=== PATIENT | male | born 1955 | race African-American/Black ===

== ENCOUNTER 2018-10-28 18:10 | Emergency (ER) | payer OTHER ==
[~2018-10-28] VITALS: Ht 182.9 cm; Wt 75.3 kg
[2018-10-28] MEDS ORDERED: LIDOCAINE WITH 8.4% SOD BICARB 3 ML DISP.SYRIN. INJ ONE (19:30)
[2018-10-28 19:39] VITALS: BP 163/98
--- NOTE | 2018-10-28 19:45 | PHYS DOC ---
Adult General Chief Complaint Chief Complaint: LACERATION/AVULSION HPI HPI Patient is a 63 year old male presents to ED complaining of left wrist laceration 2 hours ago. Patient states that a sample grinder bumped a piece of rock and the sample grinder came back and hit his left wrist. Describes the pain as sharp. R ates the pain as 3 out of 10. States that the cut is superficial. States bleeding controlled at the site. Denies weakness, paresthesias, bony injury, decreased range of motion, fever. Review of Systems Review of Systems Constitutional: Denies fever or chills [] Eyes: Denies change in visual acuity, redness, or eye pain [] HENT: Denies nasal congestion or sore throat [] Respiratory: Denies cough or shortness of breath [] Cardiovascular: No additional information not addressed in HPI [] GI: Denies abdominal pain, nausea, vomiting, bloody stools or diarrhea [] : Denies dysuria or hematuria [] Musculoskeletal: Complains of left wrist laceration. Denies back pain or joint pain [] Integument: Denies rash or skin lesions [] Neurologic: Denies headache, focal weakness or sensory changes [] All other systems were reviewed and found to be within normal limits, except as documented in this note. Current Medications Current Medications Current Medications Medications (Trade) Dose Ordered Sig/[facility] Start Time Stop Time Status Last Admin Dose Admin Lidocaine/Sodium Bicarbonate (Buffered Lidocaine 1%) 6 ml 1X ONCE 10/28/18 19:30 10/28/18 19:40 DC 10/28/18 19:30 6 ML Allergies Allergies Allergies Coded Allergies Type Severity Reaction Last Updated Verified No Known Drug Allergies 10/28/18 No Physical Exam Physical Exam Constitutional: Well developed, well nourished, no acute distress, non-toxic appearance. [] HENT: Normocephalic, atraumatic Skin: Warm, dry, no erythema, no rash. [] Back: No tenderness, no CVA tenderness. [] Extremities: 4 cm laceration to left wrist. Bleeding controlled. No bony tenderness, no cyanosis, no clubbing, ROM intact, no edema. NV intact. No overlying skin changes. 2+ cap refill. [] Neurologic: Alert and oriented X 3, normal motor function, normal sensory function, no focal deficits noted. [] Psychologic: Affect normal, judgement normal, mood normal. [] Current Patient Data Vital Signs Vital Signs Date Time Temp Pulse Resp B/P (MAP) Pulse Ox O2 Delivery O2 Flow Rate FiO2 10/28/18 19:39 98.6 106 20 163/98 (119) 96 Room Air 98.6 EKG EKG [] Radiology/Procedures Radiology/Procedures [] Course & Med Decision Making Course & Med Decision Making Pertinent Labs and Imaging studies reviewed. (See chart for details) []Laceration repaired. No complications. Patient tolerated well. Tetanus up-to-date. Discussed symptomatic treatment and wound care. Discussed follow-up for reevaluation 3 days. Provided contact information/education. Discussed reasons to return to the ED. Patient understands and agrees with plan. Dragon Disclaimer Dragon Disclaimer This electronic medical record was generated, in whole or in part, using a voice recognition dictation system. Departure Departure Impression: Primary Impression: Wrist laceration Disposition: HOME, SELF-CARE Condition: IMPROVED Referrals: NO PCP (PCP) FÁTIMA COLEMAN MD Patient Instructions: Sutured Wound Care Laceration/Wound Repair Laceration/Wound Repair : Wound Location: upper extremity Wound's Depth, Shape: superficial Wound Length (cm): 4 Wound Explored: clean Irrigated w/ Saline (ccs): 500 Betadine Prep?: Yes Anesthesia: 1% Lidocaine Wound Repaired With: sutures Suture Size/Type: 3:0, nylon Number of Sutures: 13 Progress Patient tolerated well. No complications. JERRY OSULLIVAN October 28, 2018 19:45
== END 2018-10-28 20:11 | disposition home or self-care (01) ==
LOC: ER 18:10
DX: S61.512A Laceration without foreign body of left wrist, initial encounter (principal); W22.8XXA Striking against or struck by other objects, initial encounter; Y93.89 Activity, other specified; Y92.89 Other specified places as the place of occurrence of the external cause; Y99.8 Other external cause status
CPT/HCPCS: 12002; 99283

== ENCOUNTER 2018-11-08 10:14 | Emergency (ER) | payer OTHER ==
[~2018-11-08] VITALS: Ht 182.9 cm; Wt 80.7 kg
[2018-11-08 10:33] VITALS: BP 135/90
[2018-11-08] MEDS ORDERED: ALBUTEROL SULFATE 2.5 MG/3 ML NEBU. NEB ONE (11:15)
[2018-11-08] MEDS ORDERED: ALBU2.5V8 INH (11:24)
[2018-11-08] MEDS ORDERED: DOXY100T9 PO (11:24)
--- NOTE | 2018-11-08 11:25 | PHYS DOC ---
Past Medical History Past Medical History: No Pertinent History (BHUMI INTERIANO APRN) Past Surgical History: No Surgical History (BHUMI INTERIANO APRN) Alcohol Use: Heavy Drug Use: None (BHUMI INTERIANO APRN) Adult General Chief Complaint Chief Complaint: SUTURE/STAPLE REMOVAL [facility] HPI Patient is a 63 year old male who presents with a laceration to his left wrist after it was cut with a glass grinder. The patient presents for suture removals. Upon speaking with the patient I noticed that there is a considerable amount of wheezing. The patient states that he's been having some respiratory issues. The [facility]. He has not had good ollow-up care. (BHUMI INTERIANO APRN) Review of Systems Review of Systems Constitutional: Denies fever or chills [] Eyes: Denies change in visual acuity, redness, or eye pain [] HENT: Denies nasal congestion or sore throat [] Respiratory: See history of present illness Cardiovascular: No additional information not addressed in HPI [] GI: Denies abdominal pain, nausea, vomiting, bloody stools or diarrhea [] : Denies dysuria or hematuria [] Musculoskeletal: Denies back pain or joint pain [] Integument: See history of present illness Neurologic: Denies headache, focal weakness or sensory changes [] Endocrine: Denies polyuria or polydipsia [] All other systems were reviewed and found to be within normal limits, except as documented in this note. (BHUMI INTERIANO APRN) Current Medications Current Medications Current Medications Medications (Trade) Dose Ordered Sig/[facility] Start Time Stop Time Status Last Admin Dose Admin Albuterol Sulfate (Ventolin Neb Soln) 2.5 mg 1X ONCE 11/08/18 11:15 11/08/18 11:16 DC 11/08/18 11:05 2.5 MG (MARIA C URIBE MD) Allergies Allergies Allergies Coded Allergies Type Severity Reaction Last Updated Verified No Known Drug Allergies 10/28/18 No (MARIA C URIBE MD) Physical Exam Physical Exam Constitutional: Well developed, well nourished, no acute distress, non-toxic appearance. [] Cardiovascular:Heart rate regular rhythm, no murmur [] Lungs & Thorax: Bilateral breath sounds show wheezing and rhonchi with a harsh cough noted Abdomen: Bowel sounds normal, soft, no tenderness, no masses, no pulsatile masses. [] Skin: 4 cm healing laceration with some gaping noted at the distal repair Back: No tenderness, no CVA tenderness. [] Extremities: No tenderness, no cyanosis, no clubbing, ROM intact, no edema. [] Neurologic: Alert and oriented X 3, normal motor function, normal sensory function, no focal deficits noted. [] Psychologic: Affect normal, judgement normal, mood normal. [] (BHUMI INTERIANO APRN) Current Patient Data Vital Signs Vital Signs Date Time Temp Pulse Resp B/P (MAP) Pulse Ox O2 Delivery O2 Flow Rate FiO2 11/08/18 11:07 93 Room Air 11/08/18 10:33 98.7 115 20 135/90 (105) 98.7 (MARIA C URIBE MD) EKG EKG [] (BHUMI INTERIANO APRN) Radiology/Procedures Radiology/Procedures [] (BHUMI INTERIANO APRN) Course & Med Decision Making Course & Med Decision Making Pertinent Labs and Imaging studies reviewed. (See chart for details) []Sutures were removed and the patient's wound was reinforced with Mastisol and Steri-Strips. He has been placed on doxycycline after he received an albuterol treatment in the emergency department. He states that the albuterol did make him feel better. He has been given a prescription for an albuterol inhaler for at- home use. (BHUMI INTERIANO APRN) Course & Med Decision Making Staff Physician Addendum: I was working in the ER during the course of this patient's visit. I was available for consultation as needed, but I was not directly involved in the care of this patient. (MARIA C URIBE MD) Dragon Disclaimer Dragon Disclaimer This electronic medical record was generated, in whole or in part, using a voice recognition dictation system. (BHUMI INTERIANO APRN) Departure Departure Impression: Primary Impression: Visit for suture removal Additional Impressions: Cough Wheezing Disposition: HOME, SELF-CARE Condition: STABLE Referrals: NO PCP (PCP) Patient Instructions: Cough, Adult, Suture Removal-Brief Additional Instructions: Take the medication as directed. Follow-up with your primary care provider for recheck if you're cough is not improving. Return to emergency department if worsening. The Steri-Strips will come up on their own. Do not pull on them. Keep the wound clean and dry. Scripts Albuterol Sulfate (PROAIR HFA INHALER) 8.5 Gm Hfa.aer.ad 1 PUFF INH PRN Q6HRS PRN for SHORTNESS OF BREATH, #1 INHALER 0 Refills Prov: BHUMI INTERIANO APRN 11/08/18 Doxycycline Hyclate (DOXYCYCLINE HYCLATE) 100 Mg Tablet. 1 TAB PO BID for infection, #20 TAB Prov: BHUMI INTERIANO APRN 11/08/18 Problem Qualifiers BHUMI INTERIANO APRN November 08, 2018 11:25 MARIA C URIBE MD November 09, 2018 18:45
== END 2018-11-08 11:35 | disposition home or self-care (01) ==
LOC: ER 10:14
DX: S61.512D Laceration without foreign body of left wrist, subsequent encounter (principal); R05 Cough; R06.2 Wheezing; F10.20 Alcohol dependence, uncomplicated; Y90.9 Presence of alcohol in blood, level not specified; W29.0XXD Contact with powered kitchen appliance, subsequent encounter
CPT/HCPCS: 94640; 99283; J7613

== ENCOUNTER 2018-11-19 22:23 | Inpatient (IN) | payer OTHER, SELFPAY ==
[~2018-11-19] VITALS: Ht 182.9 cm; Wt 74.0 kg
[~2018-11-19 22:23] MED LIST: ALBU2.5V8 INH; DOXY100T9 PO
--- NOTE | 2018-11-19 23:30 | PHYS DOC ---
Past Medical History Past Medical History: No Pertinent History (JERRY ZALDIVAR APRN) Past Surgical History: No Surgical History Additional Past Surgical Histo: Pins in L elbow (JERRY ZALDIVAR APRN) Alcohol Use: Heavy Drug Use: None (JERRY ZALDIVAR APRN) Adult General Chief Complaint Chief Complaint: LOWER EXTREMITY [facility] HPI Patient is a 63 year old [male] who presents with lower leg swelling bilaterally for the past 4-5 days. Patient reports he started some swelling increasing in his legs on October 30, after he had had some brief shortness of breath. Reports he had some cough and congestion, and started taking some black seed oil at that time. Reports he has noticed it to help his breathing and help his cough, but has also noticed some swelling start to his legs which is progressively worsened since that time. Reports yesterday he noticed the swelling wasn't to his scrotum, and reports today described as very full with fluid. Also reports he notices some fluid on his bilateral flanks, which she does not normally have, reports he does not normally carry any weight around his hips, but today he does. Reports he has been eating and drinking normally, remains active, denies any increase in dyspnea on activity, reports he continues to work as he normally does. Reports some discomfort only due to swelling. (JERRY ZALDIVAR APRN) Review of Systems Review of Systems Constitutional: Denies fever or chills [] Eyes: Denies change in visual acuity, redness, or eye pain [] HENT: Denies nasal congestion or sore throat [] Respiratory: Denies cough or shortness of breath [] Cardiovascular: No additional information not addressed in HPI [] GI: Denies abdominal pain, nausea, vomiting, bloody stools or diarrhea [] : Denies dysuria or hematuria, reports scrotal swelling started yesterday. [] Musculoskeletal: Denies back pain or joint pain, reports swelling in bilateral legs. [] Integument: Denies rash or skin lesions [] Neurologic: Denies headache, focal weakness or sensory changes [] Endocrine: Denies polyuria or polydipsia [] All other systems were reviewed and found to be within normal limits, except as documented in this note. (JERRY ZALDIVAR APRN) Allergies Allergies Allergies Coded Allergies Type Severity Reaction Last Updated Verified No Known Drug Allergies 10/28/18 No (FÁTIMA DAUGHERTY DO) Physical Exam Physical Exam Constitutional: Well developed, well nourished, no acute distress, non-toxic appearance. [] HENT: Normocephalic, atraumatic, bilateral external ears normal, oropharynx moist, no oral exudates, nose normal. [] Eyes: PERRLA, EOMI, conjunctiva normal, no discharge. [] Neck: Normal range of motion, no tenderness, supple, no stridor. [] Cardiovascular:Heart rate regular rhythm, no murmur [] Lungs & Thorax: Bilateral breath with coarse rales, bilateral, left worse than right.[] Abdomen: Bowel sounds normal, soft, no tenderness, no masses, no pulsatile masses. Soft, fluid noted to bilateral flanks. Abdomen mildly distended, no tenderness [] Skin: Warm, dry, no erythema, no rash. [] Back: No tenderness, no CVA tenderness. [] Extremities: No tenderness, no cyanosis, no clubbing, ROM intact, 4+ edema to bilateral lower legs, extending to hips, and into scrotum. Scrotum notably swollen. [] Neurologic: Alert and oriented X 3, normal motor function, normal sensory function, no focal deficits noted. [] Psychologic: Affect normal, judgement normal, mood normal. [] (JERRY ZALDIVAR APRN) Current Patient Data Vital Signs Vital Signs Date Time Temp Pulse Resp B/P (MAP) Pulse Ox O2 Delivery O2 Flow Rate FiO2 11/19/18 23:43 125 20 125/89 (101) 99 Nasal Cannula 2.0 11/19/18 22:39 98.2 98.2 (FÁTIMA DAUGHERTY DO) Lab Values Laboratory Tests Test 11/19/18 22:40 11/19/18 22:56 Urine Collection Type Unknown Urine Color Malgorzata Urine Clarity Clear Urine pH 5.5 Urine Specific [place] >=1.030 Urine Protein 30 mg/dL (NEG-TRACE) Urine Glucose (UA) Negative mg/dL (NEG) Urine Ketones (Stick) Negative mg/dL (NEG) Urine Blood Negative (NEG) Urine Nitrite Negative (NEG) Urine Bilirubin Small (NEG) Urine Urobilinogen Dipstick 1.0 mg/dL (0.2 mg/dL) Urine Leukocyte Esterase Negative (NEG) Urine RBC 0 /HPF (0-2) Urine WBC 5-10 /HPF (0-4) Urine Squamous Epithelial Cells Occ /LPF Urine Bacteria 0 /HPF (0-FEW) Urine Hyaline Casts Moderate /HPF Urine Mucus Marked /LPF White Blood Count 6.6 x10^3/uL (4.0-11.0) Red Blood Count 3.83 x10^6/uL (4.30-5.70) L Hemoglobin 12.7 g/dL (13.0-17.5) L Hematocrit 38.8 % (39.0-53.0) L Mean Corpuscular Volume 101 fL (79-100) H Mean Corpuscular Hemoglobin 33 pg (25-35) Mean Corpuscular Hemoglobin Concent 33 g/dL (31-37) Red Cell Distribution Width 14.1 % (11.5-14.5) Platelet Count 206 x10^3/uL (140-400) Neutrophils (%) (Auto) 63 % (31-73) Lymphocytes (%) (Auto) 24 % (24-48) Monocytes (%) (Auto) 11 % (0-9) H Eosinophils (%) (Auto) 1 % (0-3) Basophils (%) (Auto) 1 % (0-3) Neutrophils # (Auto) 4.2 x10^3uL (1.8-7.7) Lymphocytes # (Auto) 1.6 x10^3/uL (1.0-4.8) Monocytes # (Auto) 0.7 x10^3/uL (0.0-1.1) Eosinophils # (Auto) 0.1 x10^3/uL (0.0-0.7) Basophils # (Auto) 0.0 x10^3/uL (0.0-0.2) Sodium Level 142 mmol/L (136-145) Potassium Level 4.2 mmol/L (3.5-5.1) Chloride Level 105 mmol/L (98-107) Carbon Dioxide Level 30 mmol/L (21-32) Anion Gap 7 (6-14) Blood Urea Nitrogen 15 mg/dL (8-26) Creatinine 0.9 mg/dL (0.7-1.3) Estimated GFR (Cockcroft-Gault) 102.5 BUN/Creatinine Ratio 17 (6-20) Glucose Level 135 mg/dL (70-99) H Calcium Level 8.6 mg/dL (8.5-10.1) Total Bilirubin 0.5 mg/dL (0.2-1.0) Aspartate Amino Transferase (AST) 42 U/L (15-37) H Alanine Aminotransferase (ALT) 44 U/L (16-63) Alkaline Phosphatase 85 U/L (46-116) Creatine Kinase 294 U/L (39-308) Creatine Kinase MB (Mass) 7.2 ng/mL (0.0-3.6) H Creatine Kinase MB Relative Index 2.4 % (0-4) Troponin I Quantitative 0.063 ng/mL (0.000-0.055) XB-Drs-K-Type Natriuretic Peptide 7105 pg/mL (0-124) H Total Protein 5.9 g/dL (6.4-8.2) L Albumin 2.9 g/dL (3.4-5.0) L Albumin/Globulin Ratio 1.0 (1.0-1.7) Ethyl Alcohol Level < 10 mg/dL (0-10) Laboratory Tests 11/19/18 22:56 Laboratory Tests 11/19/18 22:56 Microbiology 11/19/18 Urine Culture - Final, Complete 11/19/18 Urine Culture Result 1 (MALCOM) - Final, Complete (FÁTIMA DAUGHERTY DO) Lab Values Laboratory Tests Test 11/19/18 22:40 11/19/18 22:56 Urine Collection Type Unknown Urine Color Malgorzata Urine Clarity Clear Urine pH 5.5 Urine Specific [place] >=1.030 Urine Protein 30 mg/dL (NEG-TRACE) Urine Glucose (UA) Negative mg/dL (NEG) Urine Ketones (Stick) Negative mg/dL (NEG) Urine Blood Negative (NEG) Urine Nitrite Negative (NEG) Urine Bilirubin Small (NEG) Urine Urobilinogen Dipstick 1.0 mg/dL (0.2 mg/dL) Urine Leukocyte Esterase Negative (NEG) Urine RBC 0 /HPF (0-2) Urine WBC 5-10 /HPF (0-4) Urine Squamous Epithelial Cells Occ /LPF Urine Bacteria 0 /HPF (0-FEW) Urine Hyaline Casts Moderate /HPF Urine Mucus Marked /LPF White Blood Count 6.6 x10^3/uL (4.0-11.0) Red Blood Count 3.83 x10^6/uL (4.30-5.70) L Hemoglobin 12.7 g/dL (13.0-17.5) L Hematocrit 38.8 % (39.0-53.0) L Mean Corpuscular Volume 101 fL (79-100) H Mean Corpuscular Hemoglobin 33 pg (25-35) Mean Corpuscular Hemoglobin Concent 33 g/dL (31-37) Red Cell Distribution Width 14.1 % (11.5-14.5) Platelet Count 206 x10^3/uL (140-400) Neutrophils (%) (Auto) 63 % (31-73) Lymphocytes (%) (Auto) 24 % (24-48) Monocytes (%) (Auto) 11 % (0-9) H Eosinophils (%) (Auto) 1 % (0-3) Basophils (%) (Auto) 1 % (0-3) Neutrophils # (Auto) 4.2 x10^3uL (1.8-7.7) Lymphocytes # (Auto) 1.6 x10^3/uL (1.0-4.8) Monocytes # (Auto) 0.7 x10^3/uL (0.0-1.1) Eosinophils # (Auto) 0.1 x10^3/uL (0.0-0.7) Basophils # (Auto) 0.0 x10^3/uL (0.0-0.2) Sodium Level 142 mmol/L (136-145) Potassium Level 4.2 mmol/L (3.5-5.1) Chloride Level 105 mmol/L (98-107) Carbon Dioxide Level 30 mmol/L (21-32) Anion Gap 7 (6-14) Blood Urea Nitrogen 15 mg/dL (8-26) Creatinine 0.9 mg/dL (0.7-1.3) Estimated GFR (Cockcroft-Gault) 102.5 BUN/Creatinine Ratio 17 (6-20) Glucose Level 135 mg/dL (70-99) H Calcium Level 8.6 mg/dL (8.5-10.1) Total Bilirubin 0.5 mg/dL (0.2-1.0) Aspartate Amino Transferase (AST) 42 U/L (15-37) H Alanine Aminotransferase (ALT) 44 U/L (16-63) Alkaline Phosphatase 85 U/L (46-116) Creatine Kinase 294 U/L (39-308) Creatine Kinase MB (Mass) 7.2 ng/mL (0.0-3.6) H Creatine Kinase MB Relative Index 2.4 % (0-4) Troponin I Quantitative 0.063 ng/mL (0.000-0.055) SM-Ipk-J-Type Natriuretic Peptide 7105 pg/mL (0-124) H Total Protein 5.9 g/dL (6.4-8.2) L Albumin 2.9 g/dL (3.4-5.0) L Albumin/Globulin Ratio 1.0 (1.0-1.7) Ethyl Alcohol Level < 10 mg/dL (0-10) Laboratory Tests 11/19/18 22:56 Laboratory Tests 11/19/18 22:56 (JERRY ZALDIVAR APRN) EKG EKG [no stemi, Normal sinus rhythm. per Dr Daugherty] (JERRY ZALDIVAR APRN) Radiology/Procedures Radiology/Procedures No acute cardiopulmonary changes. Cardiomegaly noted. Per Dr Daugherty @ 0045[] (JERRY ZALDIVAR APRN) Course & Med Decision Making Course & Med Decision Making Pertinent Labs and Imaging studies reviewed. (See chart for details) [Discussed findings with patient, noting elevated troponin, elevated BNP. Will administer diuretics and ASA here. Discussed admission, patient agreeable to admission. Discussed with Dr Daugherty, agrees to patient admission.] (JERRY ZALDIVAR APRN) Dragon Disclaimer Dragon Disclaimer This electronic medical record was generated, in whole or in part, using a voice recognition dictation system. (JERRY ZALDIVAR APRN) Departure Departure Impression: Primary Impression: Acute heart failure Additional Impressions: Elevated troponin Edema Disposition: ADMITTED INPATIENT Condition: STABLE Referrals: NO PCP (PCP) Attending Signature Attending Signature I have reviewed the PA/BARREL LOADER's note and plan of care. I was available for consultation as needed during the patient's visit in the emergency department. I agree with the clinical impression, plan, and disposition. (FÁTIMA DAUGHERTY DO) Problem Qualifiers Primary Impression: Acute heart failure Heart failure type: unspecified Qualified Codes: I50.9 - Heart failure, unspecified Additional Impressions: Edema Edema type: generalized Qualified Codes: R60.1 - Generalized edema JERRY ZALDIVAR APRN November 19, 2018 23:30 FÁTIMA DAUGHERTY DO Nov 20, 2018 04:08
[2018-11-19 23:35] LABS: BASO % 1 % (0-3); EOS # 0.1 x10^3/uL (0.0-0.7); EOS % 1 % (0-3); HEMATOCRIT 38.8 % (39.0-53.0); HEMOGLOBIN 12.7 g/dL (13.0-17.5); LYMPH # 1.6 x10^3/uL (1.0-4.8); LYMPH % 24 % (24-48); MEAN CORPUSCULAR HEMOGLOBIN 33 pg (25-35); MEAN CORPUSCULAR HGB CONC 33 g/dL (31-37); MEAN CORPUSCULAR VOLUME 101 fL (79-100); MONO # 0.7 x10^3/uL (0.0-1.1); MONO % 11 % (0-9); NEUT # 4.2 x10^3uL (1.8-7.7); NEUT % 63 % (31-73); PLATELET COUNT 206 x10^3/uL (140-400); RED BLOOD COUNT 3.83 x10^6/uL (4.30-5.70); RED CELL DISTRIBUTION WIDTH 14.1 % (11.5-14.5); WHITE BLOOD COUNT 6.6 x10^3/uL (4.0-11.0)
[2018-11-19 23:39] LABS: BILIRUBIN,URINE SMALL (NEG); CLARITY,URINE CLEAR; COLOR,URINE AMBER; NITRITE,URINE NEGATIVE (NEG); PH,URINE 5.5; PROTEIN,URINE 30 mg/dL (NEG-TRACE)
[2018-11-19 23:45] LABS: BACTERIA,URINE 0 /HPF (0-FEW); HYALINE CASTS, URINE MODERATE /HPF; RBC,URINE 0 /HPF (0-2); SQUAMOUS EPITHELIAL CELL,UR OCC /LPF
[2018-11-19 23:47] LABS: CALCIUM 8.6 mg/dL (8.5-10.1); CREATININE 0.9 mg/dL (0.7-1.3); GFR 102.5; POTASSIUM 4.2 mmol/L (3.5-5.1)
[2018-11-19 23:53] LABS: ALBUMIN 2.9 g/dL (3.4-5.0); TOTAL BILIRUBIN 0.5 mg/dL (0.2-1.0); TOTAL PROTEIN 5.9 g/dL (6.4-8.2)
[2018-11-20] MEDS ORDERED: ONDANSETRON PF 4 MG/2 ML VIAL. IV PRN (00:45)
[2018-11-20] MEDS ORDERED: FUROSEMIDE 40 MG/4 ML VIAL. IVP ONE (00:45)
[2018-11-20] MEDS ORDERED: ASPIRIN CHEWABLE 81 MG TABLET. PO ONE (00:45)
[2018-11-20 01:30] VITALS: BP 137/88
[2018-11-20 07:00] VITALS: BP 117/76
--- NOTE | 2018-11-20 08:06 | RAD ---
EXAM: CHEST 1 VIEW History: Shortness of breath COMPARISON: None available. TECHNIQUE: Single portable radiograph of the chest FINDINGS: Low lung volumes and technique accentuates heart size and pulmonary vascularity. Minimal prominent appearing bilateral interstitial lung markings. The costophrenic sulci are clear and well demarcated. IMPRESSION: Minimal congestive changes. Electronically signed by: Jaden Peraza MD (11/20/2018 8:03 AM) [facility]
--- NOTE | 2018-11-20 10:41 | EKG ---
[facility] [address] [place] [address] Test Date: 2018-11-19 Test Time: 22:48:17 Pat Name: KIRILL FOFANA Department: Room: Gender: M Mink Rancher: : 1955 Requested By: JERRY ZALDIVAR Order Number: [id number] Reading MD: Measurements Intervals [place] Rate: 94 P: 69 [place]: 142 QRS: -34 QRSD: 80 T: 49 QT: 374 QTc: 473 Interpretive Statements SINUS RHYTHM LEFT ATRIAL ABNORMALITY ABNORMAL LEFT AXIS DEVIATION S1,S2,S3 PATTERN LEFT ANTERIOR FASCICULAR BLOCK QRS(T) CONTOUR ABNORMALITY CONSISTENT WITH ANTEROSEPTAL INFARCT AGE UNDETERMINED ABNORMAL ECG No previous ECG available for comparison
[2018-11-20 11:00] VITALS: BP 110/76
[2018-11-20] MEDS ORDERED: ALBUTEROL SULFATE 2.5 MG/3 ML NEBU. INH PRN (14:15)
--- NOTE | 2018-11-20 14:15 | PDOC1 ---
History and Physical Date of Admission Date of Admission 11/20/2018 Identification/Chief Complaint Chief Complaint I am swollen Problems: (1) Acute heart failure (2) Elevated troponin Source Source: Chart review, Patient History of Present Illness History of Present Illness Patient is a 63-year-old gentleman with no significant past medical history except for reactive airway disease. He comes today with a history of more or less 4 days prior to his admission noticing increase fluid retention over his lower extremities. The patient denies paroxysmal nocturnal dyspnea and orthopnea has been reported. The patient got concerned since the edema started reaching his scrotal area reason why he decided to come to the emergency department for evaluation. The patient was recently seen in our ER for a lacerations consequence of her related injury. Notes a long after he also felt ill with a upper respiratory tract infection and felt one of congested which led him to have decreased appetite and he started eating a lot of Garcia soups only. Ever since that time the patient has noted the retention of fluid his lower extremities are quite painful as a consequence but there is no evidence of erythema no cellulitic changes either. Lab work has been discussed with patient and initial impression of a congestive heart failure, reassurances been provided regarding the mildly elevated cardiac enzyme that was reported upon admission from the ER. The patient is not exhibiting chest pain no palpitations no neurological deficits no chest discomfort no abdominal pain no nausea vomiting or diarrhea has been reported. The patient is being admitted for treatment of the acute exacerbation of volume overload. Past Medical History Pulmonary: Asthma Past Surgical History Past Surgical History: No pertinent history Family History Family History: No Significant Social History Smoke: No ALCOHOL: none Drugs: None Current Medications Current Medications Current Medications Medications (Trade) Dose Ordered Sig/Maria Del Rosario Start Time Stop Time Status Last Admin Dose Admin Aspirin (Children'S Aspirin) 324 mg 1X ONCE 11/20/18 00:45 11/20/18 00:46 DC 11/20/18 00:47 324 MG Furosemide (Lasix) 40 mg 1X ONCE 11/20/18 00:45 11/20/18 00:46 DC 11/20/18 00:47 40 MG Ondansetron HCl (Zofran) 4 mg PRN Q8HRS PRN 11/20/18 00:45 11/21/18 00:44 11/20/18 00:47 4 MG Allergies Allergies Allergies Coded Allergies Type Severity Reaction Last Updated Verified No Known Drug Allergies 10/28/18 No ROS Review of System CONSTITUTIONAL: No fever or chills EYES: No recent changes SKIN: No rash or itching CARDIOVASCULAR: No chest pain, syncope, palpitations, or edema RESPIRATORY: No SOB or cough GASTROINTESTINAL: No nausea, vomiting or abdominal pain NEUROLOGICAL: No headaches or weakness ENDOCRINE: No cold or heat intolerance GENITOURINARY: No urgency or frequency of urination MUSCULOSKELETAL: No back pain or joint pain LYMPHATICS: No enlarged lymph nodes PSYCHIATRIC: No anxiety or depression Physical Exam Physical Exam GEN.: No apparent distress. Alert and oriented. HEENT: Head is normocephalic, atraumatic NECK: Supple. LUNGS: Clear to auscultation. HEART: RRR, S1, S2 present. Peripheral pulses intact ABDOMEN: Soft, nontender. Positive bowel sounds. EXTREMITIES: Without any cyanosis. 3+ edema NEUROLOGIC: Normal speech, normal tone PSYCHIATRIC: Normal affect, normal mood. SKIN: No ulcerations Vitals Vitals Vital Signs Date Time Temp Pulse Resp B/P (MAP) Pulse Ox O2 Delivery O2 Flow Rate FiO2 11/20/18 11:00 98.3 89 18 110/76 (87) 98 Nasal Cannula 2.0 98.3 Labs Labs Laboratory Tests Test 11/19/18 22:40 11/19/18 22:56 11/20/18 06:05 Urine Collection Type Unknown Urine Color Malgorzata Urine Clarity Clear Urine pH 5.5 Urine Specific Bry[place] >=1.030 Urine Protein 30 mg/dL (NEG-TRACE) Urine Glucose (UA) Negative mg/dL (NEG) Urine Ketones (Stick) Negative mg/dL (NEG) Urine Blood Negative (NEG) Urine Nitrite Negative (NEG) Urine Bilirubin Small (NEG) Urine Urobilinogen Dipstick 1.0 mg/dL (0.2 mg/dL) Urine Leukocyte Esterase Negative (NEG) Urine RBC 0 /HPF (0-2) Urine WBC 5-10 /HPF (0-4) Urine Squamous Epithelial Cells Occ /LPF Urine Bacteria 0 /HPF (0-FEW) Urine Hyaline Casts Moderate /HPF Urine Mucus Marked /LPF White Blood Count 6.6 x10^3/uL (4.0-11.0) Red Blood Count 3.83 x10^6/uL (4.30-5.70) Hemoglobin 12.7 g/dL (13.0-17.5) Hematocrit 38.8 % (39.0-53.0) Mean Corpuscular Volume 101 fL (79-100) Mean Corpuscular Hemoglobin 33 pg (25-35) Mean Corpuscular Hemoglobin Concent 33 g/dL (31-37) Red Cell Distribution Width 14.1 % (11.5-14.5) Platelet Count 206 x10^3/uL (140-400) Neutrophils (%) (Auto) 63 % (31-73) Lymphocytes (%) (Auto) 24 % (24-48) Monocytes (%) (Auto) 11 % (0-9) Eosinophils (%) (Auto) 1 % (0-3) Basophils (%) (Auto) 1 % (0-3) Neutrophils # (Auto) 4.2 x10^3uL (1.8-7.7) Lymphocytes # (Auto) 1.6 x10^3/uL (1.0-4.8) Monocytes # (Auto) 0.7 x10^3/uL (0.0-1.1) Eosinophils # (Auto) 0.1 x10^3/uL (0.0-0.7) Basophils # (Auto) 0.0 x10^3/uL (0.0-0.2) Sodium Level 142 mmol/L (136-145) Potassium Level 4.2 mmol/L (3.5-5.1) Chloride Level 105 mmol/L (98-107) Carbon Dioxide Level 30 mmol/L (21-32) Anion Gap 7 (6-14) Blood Urea Nitrogen 15 mg/dL (8-26) Creatinine 0.9 mg/dL (0.7-1.3) Estimated GFR (Cockcroft-Gault) 102.5 BUN/Creatinine Ratio 17 (6-20) Glucose Level 135 mg/dL (70-99) Calcium Level 8.6 mg/dL (8.5-10.1) Total Bilirubin 0.5 mg/dL (0.2-1.0) Aspartate Amino Transf (AST/SGOT) 42 U/L (15-37) Alanine Aminotransferase (ALT/SGPT) 44 U/L (16-63) Alkaline Phosphatase 85 U/L (46-116) Creatine Kinase 294 U/L (39-308) Creatine Kinase MB (Mass) 7.2 ng/mL (0.0-3.6) Creatine Kinase MB Relative Index 2.4 % (0-4) Troponin I Quantitative 0.063 ng/mL (0.000-0.055) 0.052 ng/mL (0.000-0.055) BX-Zba-Q-Type Natriuretic Peptide 7105 pg/mL (0-124) Total Protein 5.9 g/dL (6.4-8.2) Albumin 2.9 g/dL (3.4-5.0) Albumin/Globulin Ratio 1.0 (1.0-1.7) Ethyl Alcohol Level < 10 mg/dL (0-10) Laboratory Tests Test 11/19/18 22:40 11/19/18 22:56 11/20/18 06:05 Urine Collection Type Unknown Urine Color Malgorzata Urine Clarity Clear Urine pH 5.5 Urine Specific Bryson >=1.030 Urine Protein 30 mg/dL (NEG-TRACE) Urine Glucose (UA) Negative mg/dL (NEG) Urine Ketones (Stick) Negative mg/dL (NEG) Urine Blood Negative (NEG) Urine Nitrite Negative (NEG) Urine Bilirubin Small (NEG) Urine Urobilinogen Dipstick 1.0 mg/dL (0.2 mg/dL) Urine Leukocyte Esterase Negative (NEG) Urine RBC 0 /HPF (0-2) Urine WBC 5-10 /HPF (0-4) Urine Squamous Epithelial Cells Occ /LPF Urine Bacteria 0 /HPF (0-FEW) Urine Hyaline Casts Moderate /HPF Urine Mucus Marked /LPF White Blood Count 6.6 x10^3/uL (4.0-11.0) Red Blood Count 3.83 x10^6/uL (4.30-5.70) Hemoglobin 12.7 g/dL (13.0-17.5) Hematocrit 38.8 % (39.0-53.0) Mean Corpuscular Volume 101 fL (79-100) Mean Corpuscular Hemoglobin 33 pg (25-35) Mean Corpuscular Hemoglobin Concent 33 g/dL (31-37) Red Cell Distribution Width 14.1 % (11.5-14.5) Platelet Count 206 x10^3/uL (140-400) Neutrophils (%) (Auto) 63 % (31-73) Lymphocytes (%) (Auto) 24 % (24-48) Monocytes (%) (Auto) 11 % (0-9) Eosinophils (%) (Auto) 1 % (0-3) Basophils (%) (Auto) 1 % (0-3) Neutrophils # (Auto) 4.2 x10^3uL (1.8-7.7) Lymphocytes # (Auto) 1.6 x10^3/uL (1.0-4.8) Monocytes # (Auto) 0.7 x10^3/uL (0.0-1.1) Eosinophils # (Auto) 0.1 x10^3/uL (0.0-0.7) Basophils # (Auto) 0.0 x10^3/uL (0.0-0.2) Sodium Level 142 mmol/L (136-145) Potassium Level 4.2 mmol/L (3.5-5.1) Chloride Level 105 mmol/L (98-107) Carbon Dioxide Level 30 mmol/L (21-32) Anion Gap 7 (6-14) Blood Urea Nitrogen 15 mg/dL (8-26) Creatinine 0.9 mg/dL (0.7-1.3) Estimated GFR (Cockcroft-Gault) 102.5 BUN/Creatinine Ratio 17 (6-20) Glucose Level 135 mg/dL (70-99) Calcium Level 8.6 mg/dL (8.5-10.1) Total Bilirubin 0.5 mg/dL (0.2-1.0) Aspartate Amino Transf (AST/SGOT) 42 U/L (15-37) Alanine Aminotransferase (ALT/SGPT) 44 U/L (16-63) Alkaline Phosphatase 85 U/L (46-116) Creatine Kinase 294 U/L (39-308) Creatine Kinase MB (Mass) 7.2 ng/mL (0.0-3.6) Creatine Kinase MB Relative Index 2.4 % (0-4) Troponin I Quantitative 0.063 ng/mL (0.000-0.055) 0.052 ng/mL (0.000-0.055) GO-Tjr-Y-Type Natriuretic Peptide 7105 pg/mL (0-124) Total Protein 5.9 g/dL (6.4-8.2) Albumin 2.9 g/dL (3.4-5.0) Albumin/Globulin Ratio 1.0 (1.0-1.7) Ethyl Alcohol Level < 10 mg/dL (0-10) VTE Prophylaxis Ordered VTE Prophylaxis Devices: Yes VTE Pharmacological Prophylaxi: No Assessment/Plan Assessment/Plan Congestive heart failure most likely systolic dysfunction with acute exacerbation secondary to dietary transgression Hyperglycemia Mild elevation of troponin resolved Microcytic anemia Plan: Check echocardiogram We'll start Bumex drip Consult cardiology Resume home medications once available for review We'll check hemoglobin A1c in the a.m. and lipid panel in the a.m. for risk stratification DVT prophylaxis with SCD and teds Problem Qualifiers (1) Acute heart failure: Heart failure type: unspecified Qualified Codes: I50.9 - Heart failure, unspecified JERRELL BOWMAN MD Nov 20, 2018 14:15
--- NOTE | 2018-11-20 14:42 | PDOC2 ---
CONSULT Date of Consult Date of Consult DATE: 11/20/18 TIME: 14:38 Reason for Consult Reason for Consult: Heart failure Referring Physician Referring Physician: Dr. Arzola Identification/Chief Complaint Chief Complaint Edema and shortness of breath Source Source: Chart review, Patient History of Present Illness Reason for Visit: The patient is a 63-year-old black male who reports 5-7 days of increasing lower extremity edema and 2-3 days of increasing shortness of breath and congestion. The patient reports a history of probable asthma but no history of coronary artery disease, congestive heart failure or arrhythmias. He has remained quite active up until the last several weeks. His initial EKG shows a sinus rhythm with no acute ischemic changes. Troponin is within minimally elevated at 0.063 and 0.052. However his BNP is significantly elevated at 7105. He has been treated with diuretics overnight and is feeling better today. Past Medical History Pulmonary: Asthma Past Surgical History Past Surgical History: No pertinent history Family History Family History: No Significant Social History No ALCOHOL: none Drugs: None Current Medications Current Medications Current Medications Aspirin (Children'S Aspirin) 324 mg 1X ONCE PO Last administered on 11/20/18at 00:47; Start 11/20/18 at 00:45; Stop 11/20/18 at 00:46; Status DC Furosemide (Lasix) 40 mg 1X ONCE IVP Last administered on 11/20/18at 00:47; Start 11/20/18 at 00:45; Stop 11/20/18 at 00:46; Status DC Ondansetron HCl (Zofran) 4 mg PRN Q8HRS PRN IV NAUSEA/VOMITING Last administered on 11/20/18at 00:47; Start 11/20/18 at 00:45; Stop 11/21/18 at 00:44 Bumetanide 10 mg/ Dextrose 100 ml @ 10 mls/hr Q10H IV ; Start 11/20/18 at 14:30 Albuterol Sulfate (Ventolin Neb Soln) 8.5 mg PRN Q6HRS PRN INH SHORTNESS OF BREATH; Start 11/20/18 at 14:15 Active Scripts Active Proair Hfa Inhaler (Albuterol Sulfate) 8.5 Gm Hfa.aer.ad 1 Puff INH PRN Q6HRS PRN Doxycycline Hyclate 100 Mg Tablet. 1 Tab PO BID Allergies Allergies: Coded Allergies: No Known Drug Allergies (Unverified , 10/28/18) ROS General: YES: Fatigue Respiratory: YES: Shortness of breath, SOB with excertion Physical Exam General: mild distress HEENT: Atraumatic Lungs: Other (decreased breath sounds bilaterally) Heart: Regular rate Abdomen: Normal bowel sounds Vitals VITALS Vital Signs Date Time Temp Pulse Resp B/P (MAP) Pulse Ox O2 Delivery O2 Flow Rate FiO2 11/20/18 11:00 98.3 89 18 110/76 (87) 98 Nasal Cannula 2.0 98.3 Labs Labs Laboratory Tests Test 11/19/18 22:40 11/19/18 22:56 11/20/18 06:05 Urine Collection Type Unknown Urine Color Malgorzata Urine Clarity Clear Urine pH 5.5 Urine Specific [place] >=1.030 Urine Protein 30 mg/dL (NEG-TRACE) Urine Glucose (UA) Negative mg/dL (NEG) Urine Ketones (Stick) Negative mg/dL (NEG) Urine Blood Negative (NEG) Urine Nitrite Negative (NEG) Urine Bilirubin Small (NEG) Urine Urobilinogen Dipstick 1.0 mg/dL (0.2 mg/dL) Urine Leukocyte Esterase Negative (NEG) Urine RBC 0 /HPF (0-2) Urine WBC 5-10 /HPF (0-4) Urine Squamous Epithelial Cells Occ /LPF Urine Bacteria 0 /HPF (0-FEW) Urine Hyaline Casts Moderate /HPF Urine Mucus Marked /LPF White Blood Count 6.6 x10^3/uL (4.0-11.0) Red Blood Count 3.83 x10^6/uL (4.30-5.70) Hemoglobin 12.7 g/dL (13.0-17.5) Hematocrit 38.8 % (39.0-53.0) Mean Corpuscular Volume 101 fL (79-100) Mean Corpuscular Hemoglobin 33 pg (25-35) Mean Corpuscular Hemoglobin Concent 33 g/dL (31-37) Red Cell Distribution Width 14.1 % (11.5-14.5) Platelet Count 206 x10^3/uL (140-400) Neutrophils (%) (Auto) 63 % (31-73) Lymphocytes (%) (Auto) 24 % (24-48) Monocytes (%) (Auto) 11 % (0-9) Eosinophils (%) (Auto) 1 % (0-3) Basophils (%) (Auto) 1 % (0-3) Neutrophils # (Auto) 4.2 x10^3uL (1.8-7.7) Lymphocytes # (Auto) 1.6 x10^3/uL (1.0-4.8) Monocytes # (Auto) 0.7 x10^3/uL (0.0-1.1) Eosinophils # (Auto) 0.1 x10^3/uL (0.0-0.7) Basophils # (Auto) 0.0 x10^3/uL (0.0-0.2) Sodium Level 142 mmol/L (136-145) Potassium Level 4.2 mmol/L (3.5-5.1) Chloride Level 105 mmol/L (98-107) Carbon Dioxide Level 30 mmol/L (21-32) Anion Gap 7 (6-14) Blood Urea Nitrogen 15 mg/dL (8-26) Creatinine 0.9 mg/dL (0.7-1.3) Estimated GFR (Cockcroft-Gault) 102.5 BUN/Creatinine Ratio 17 (6-20) Glucose Level 135 mg/dL (70-99) Calcium Level 8.6 mg/dL (8.5-10.1) Total Bilirubin 0.5 mg/dL (0.2-1.0) Aspartate Amino Transf (AST/SGOT) 42 U/L (15-37) Alanine Aminotransferase (ALT/SGPT) 44 U/L (16-63) Alkaline Phosphatase 85 U/L (46-116) Creatine Kinase 294 U/L (39-308) Creatine Kinase MB (Mass) 7.2 ng/mL (0.0-3.6) Creatine Kinase MB Relative Index 2.4 % (0-4) Troponin I Quantitative 0.063 ng/mL (0.000-0.055) 0.052 ng/mL (0.000-0.055) AJ-Bow-V-Type Natriuretic Peptide 7105 pg/mL (0-124) Total Protein 5.9 g/dL (6.4-8.2) Albumin 2.9 g/dL (3.4-5.0) Albumin/Globulin Ratio 1.0 (1.0-1.7) Ethyl Alcohol Level < 10 mg/dL (0-10) Laboratory Tests Test 11/19/18 22:40 11/19/18 22:56 11/20/18 06:05 Urine Collection Type Unknown Urine Color Malgorzata Urine Clarity Clear Urine pH 5.5 Urine Specific [place] >=1.030 Urine Protein 30 mg/dL (NEG-TRACE) Urine Glucose (UA) Negative mg/dL (NEG) Urine Ketones (Stick) Negative mg/dL (NEG) Urine Blood Negative (NEG) Urine Nitrite Negative (NEG) Urine Bilirubin Small (NEG) Urine Urobilinogen Dipstick 1.0 mg/dL (0.2 mg/dL) Urine Leukocyte Esterase Negative (NEG) Urine RBC 0 /HPF (0-2) Urine WBC 5-10 /HPF (0-4) Urine Squamous Epithelial Cells Occ /LPF Urine Bacteria 0 /HPF (0-FEW) Urine Hyaline Casts Moderate /HPF Urine Mucus Marked /LPF White Blood Count 6.6 x10^3/uL (4.0-11.0) Red Blood Count 3.83 x10^6/uL (4.30-5.70) Hemoglobin 12.7 g/dL (13.0-17.5) Hematocrit 38.8 % (39.0-53.0) Mean Corpuscular Volume 101 fL (79-100) Mean Corpuscular Hemoglobin 33 pg (25-35) Mean Corpuscular Hemoglobin Concent 33 g/dL (31-37) Red Cell Distribution Width 14.1 % (11.5-14.5) Platelet Count 206 x10^3/uL (140-400) Neutrophils (%) (Auto) 63 % (31-73) Lymphocytes (%) (Auto) 24 % (24-48) Monocytes (%) (Auto) 11 % (0-9) Eosinophils (%) (Auto) 1 % (0-3) Basophils (%) (Auto) 1 % (0-3) Neutrophils # (Auto) 4.2 x10^3uL (1.8-7.7) Lymphocytes # (Auto) 1.6 x10^3/uL (1.0-4.8) Monocytes # (Auto) 0.7 x10^3/uL (0.0-1.1) Eosinophils # (Auto) 0.1 x10^3/uL (0.0-0.7) Basophils # (Auto) 0.0 x10^3/uL (0.0-0.2) Sodium Level 142 mmol/L (136-145) Potassium Level 4.2 mmol/L (3.5-5.1) Chloride Level 105 mmol/L (98-107) Carbon Dioxide Level 30 mmol/L (21-32) Anion Gap 7 (6-14) Blood Urea Nitrogen 15 mg/dL (8-26) Creatinine 0.9 mg/dL (0.7-1.3) Estimated GFR (Cockcroft-Gault) 102.5 BUN/Creatinine Ratio 17 (6-20) Glucose Level 135 mg/dL (70-99) Calcium Level 8.6 mg/dL (8.5-10.1) Total Bilirubin 0.5 mg/dL (0.2-1.0) Aspartate Amino Transf (AST/SGOT) 42 U/L (15-37) Alanine Aminotransferase (ALT/SGPT) 44 U/L (16-63) Alkaline Phosphatase 85 U/L (46-116) Creatine Kinase 294 U/L (39-308) Creatine Kinase MB (Mass) 7.2 ng/mL (0.0-3.6) Creatine Kinase MB Relative Index 2.4 % (0-4) Troponin I Quantitative 0.063 ng/mL (0.000-0.055) 0.052 ng/mL (0.000-0.055) BT-Rvy-X-Type Natriuretic Peptide 7105 pg/mL (0-124) Total Protein 5.9 g/dL (6.4-8.2) Albumin 2.9 g/dL (3.4-5.0) Albumin/Globulin Ratio 1.0 (1.0-1.7) Ethyl Alcohol Level < 10 mg/dL (0-10) Assessment/Plan Assessment/Plan 1. History, lab and physical exam is consistent with acute heart failure. As noted above patient denies any episodes of chest pain or any history of cardiovascular disease. Agree with diuresis with monitoring of the patient's lab. We'll check an echocardiogram for LV function. This was discussed with the patient. 2. History of asthma. No wheezing on examination today. 3. Unknown cholesterol level. We'll check a lipid panel for further evaluation. Thank you for allowing us to participate in the care of your patient. GLEN OLIVARES MD Nov 20, 2018 14:42
[2018-11-20] MEDS: DEXTROSE 5% IV SCH ×2 (14:55→22:33)
[2018-11-20] MEDS: BUMETANIDE IV SCH ×2 (14:55→22:33)
[2018-11-20 15:00] VITALS: BP 111/66
[2018-11-20 19:35] VITALS: BP 111/67
[2018-11-20 23:54] VITALS: BP 108/68
[2018-11-21 03:30] VITALS: BP 124/88
[2018-11-21 05:19] LABS: BASO % 1 % (0-3); EOS # 0.1 x10^3/uL (0.0-0.7); EOS % 1 % (0-3); HEMATOCRIT 41.2 % (39.0-53.0); HEMOGLOBIN 13.7 g/dL (13.0-17.5); LYMPH # 1.3 x10^3/uL (1.0-4.8); LYMPH % 22 % (24-48); MEAN CORPUSCULAR HEMOGLOBIN 34 pg (25-35); MEAN CORPUSCULAR HGB CONC 33 g/dL (31-37); MEAN CORPUSCULAR VOLUME 102 fL (79-100); MONO # 0.5 x10^3/uL (0.0-1.1); MONO % 10 % (0-9); NEUT # 3.8 x10^3uL (1.8-7.7); NEUT % 66 % (31-73); PLATELET COUNT 205 x10^3/uL (140-400); RED BLOOD COUNT 4.06 x10^6/uL (4.30-5.70); RED CELL DISTRIBUTION WIDTH 14.4 % (11.5-14.5); WHITE BLOOD COUNT 5.7 x10^3/uL (4.0-11.0)
[2018-11-21 05:47] LABS: CALCIUM 8.9 mg/dL (8.5-10.1); CREATININE 1.2 mg/dL (0.7-1.3); GFR 73.5; POTASSIUM 4.1 mmol/L (3.5-5.1)
[2018-11-21 06:35] LABS: CHOLESTEROL/HDL RATIO 2.4
[2018-11-21 07:00] VITALS: BP 131/71
[2018-11-21 11:00] VITALS: BP 117/72
[2018-11-21] MEDS: BUMETANIDE IV SCH ×2 (11:29→20:08)
[2018-11-21] MEDS: DEXTROSE 5% IV SCH ×2 (11:29→20:08)
--- NOTE | 2018-11-21 13:06 | PDOC ---
PROGRESS NOTES Subjective Subjective Patient seen and examined He looks and feels better today. Objective Objective Vital Signs Date Time Temp Pulse Resp B/P (MAP) Pulse Ox O2 Delivery O2 Flow Rate FiO2 11/21/18 11:00 97.5 81 18 117/72 (87) 95 Room Air 97.5 11/21/18 08:00 2.0 Intake and Output 11/21/18 07:00 Intake Total 1915 ml Output Total 3750 ml Balance -1835 ml Intake Oral 1800 ml IV Total 115 ml Output Urine Total 3750 ml # Voids 1 # Bowel Movements 2 Physical Exam Abdomen: Normal bowel sounds Heart: Regular rate General: mild distress Lungs: Other (decreased breath sounds but improved.) Assessment Assessment 1. Acute heart failure. Improved with diuresis. Continue present medications. Echocardiogram today. 2. History of asthma. Again no wheezing on examination. 3. Cholesterol panel is within normal limits with an LDL of 72, HDL of 57 and triglycerides of 138. Comment Review of Relevant I have reviewed the following items ida (where applicable) has been applied. Labs Laboratory Tests Test 11/19/18 22:40 11/19/18 22:56 11/20/18 06:05 11/21/18 04:45 Urine Collection Type Unknown Urine Color [place] Urine Clarity Clear Urine pH 5.5 Urine Specific [place] >=1.030 Urine Protein 30 mg/dL (NEG-TRACE) Urine Glucose (UA) Negative mg/dL (NEG) Urine Ketones (Stick) Negative mg/dL (NEG) Urine Blood Negative (NEG) Urine Nitrite Negative (NEG) Urine Bilirubin Small (NEG) Urine Urobilinogen Dipstick 1.0 mg/dL (0.2 mg/dL) Urine Leukocyte Esterase Negative (NEG) Urine RBC 0 /HPF (0-2) Urine WBC 5-10 /HPF (0-4) Urine Squamous Epithelial Cells Occ /LPF Urine Bacteria 0 /HPF (0-FEW) Urine Hyaline Casts Moderate /HPF Urine Mucus Marked /LPF White Blood Count 6.6 x10^3/uL (4.0-11.0) 5.7 x10^3/uL (4.0-11.0) Red Blood Count 3.83 x10^6/uL (4.30-5.70) 4.06 x10^6/uL (4.30-5.70) Hemoglobin 12.7 g/dL (13.0-17.5) 13.7 g/dL (13.0-17.5) Hematocrit 38.8 % (39.0-53.0) 41.2 % (39.0-53.0) Mean Corpuscular Volume 101 fL (79-100) 102 fL (79-100) Mean Corpuscular Hemoglobin 33 pg (25-35) 34 pg (25-35) Mean Corpuscular Hemoglobin Concent 33 g/dL (31-37) 33 g/dL (31-37) Red Cell Distribution Width 14.1 % (11.5-14.5) 14.4 % (11.5-14.5) Platelet Count 206 x10^3/uL (140-400) 205 x10^3/uL (140-400) Neutrophils (%) (Auto) 63 % (31-73) 66 % (31-73) Lymphocytes (%) (Auto) 24 % (24-48) 22 % (24-48) Monocytes (%) (Auto) 11 % (0-9) 10 % (0-9) Eosinophils (%) (Auto) 1 % (0-3) 1 % (0-3) Basophils (%) (Auto) 1 % (0-3) 1 % (0-3) Neutrophils # (Auto) 4.2 x10^3uL (1.8-7.7) 3.8 x10^3uL (1.8-7.7) Lymphocytes # (Auto) 1.6 x10^3/uL (1.0-4.8) 1.3 x10^3/uL (1.0-4.8) Monocytes # (Auto) 0.7 x10^3/uL (0.0-1.1) 0.5 x10^3/uL (0.0-1.1) Eosinophils # (Auto) 0.1 x10^3/uL (0.0-0.7) 0.1 x10^3/uL (0.0-0.7) Basophils # (Auto) 0.0 x10^3/uL (0.0-0.2) 0.0 x10^3/uL (0.0-0.2) Sodium Level 142 mmol/L (136-145) 140 mmol/L (136-145) Potassium Level 4.2 mmol/L (3.5-5.1) 4.1 mmol/L (3.5-5.1) Chloride Level 105 mmol/L (98-107) 99 mmol/L (98-107) Carbon Dioxide Level 30 mmol/L (21-32) 34 mmol/L (21-32) Anion Gap 7 (6-14) 7 (6-14) Blood Urea Nitrogen 15 mg/dL (8-26) 21 mg/dL (8-26) Creatinine 0.9 mg/dL (0.7-1.3) 1.2 mg/dL (0.7-1.3) Estimated GFR (Cockcroft-Gault) 102.5 73.5 BUN/Creatinine Ratio 17 (6-20) Glucose Level 135 mg/dL (70-99) 121 mg/dL (70-99) Calcium Level 8.6 mg/dL (8.5-10.1) 8.9 mg/dL (8.5-10.1) Total Bilirubin 0.5 mg/dL (0.2-1.0) Aspartate Amino Transf (AST/SGOT) 42 U/L (15-37) Alanine Aminotransferase (ALT/SGPT) 44 U/L (16-63) Alkaline Phosphatase 85 U/L (46-116) Creatine Kinase 294 U/L (39-308) Creatine Kinase MB (Mass) 7.2 ng/mL (0.0-3.6) Creatine Kinase MB Relative Index 2.4 % (0-4) Troponin I Quantitative 0.063 ng/mL (0.000-0.055) 0.052 ng/mL (0.000-0.055) JG-Wgg-E-Type Natriuretic Peptide 7105 pg/mL (0-124) Total Protein 5.9 g/dL (6.4-8.2) Albumin 2.9 g/dL (3.4-5.0) Albumin/Globulin Ratio 1.0 (1.0-1.7) Ethyl Alcohol Level < 10 mg/dL (0-10) Magnesium Level 2.0 mg/dL (1.8-2.4) Triglycerides Level 45 mg/dL (0-150) Cholesterol Level 138 mg/dL (0-200) LDL Cholesterol, Calculated 72 mg/dL (0-100) VLDL Cholesterol, Calculated 9 mg/dL (0-40) Non-HDL Cholesterol Calculated 81 mg/dL (0-129) HDL Cholesterol 57 mg/dL (40-60) Cholesterol/HDL Ratio 2.4 Laboratory Tests Test 11/21/18 04:45 White Blood Count 5.7 x10^3/uL (4.0-11.0) Red Blood Count 4.06 x10^6/uL (4.30-5.70) Hemoglobin 13.7 g/dL (13.0-17.5) Hematocrit 41.2 % (39.0-53.0) Mean Corpuscular Volume 102 fL (79-100) Mean Corpuscular Hemoglobin 34 pg (25-35) Mean Corpuscular Hemoglobin Concent 33 g/dL (31-37) Red Cell Distribution Width 14.4 % (11.5-14.5) Platelet Count 205 x10^3/uL (140-400) Neutrophils (%) (Auto) 66 % (31-73) Lymphocytes (%) (Auto) 22 % (24-48) Monocytes (%) (Auto) 10 % (0-9) Eosinophils (%) (Auto) 1 % (0-3) Basophils (%) (Auto) 1 % (0-3) Neutrophils # (Auto) 3.8 x10^3uL (1.8-7.7) Lymphocytes # (Auto) 1.3 x10^3/uL (1.0-4.8) Monocytes # (Auto) 0.5 x10^3/uL (0.0-1.1) Eosinophils # (Auto) 0.1 x10^3/uL (0.0-0.7) Basophils # (Auto) 0.0 x10^3/uL (0.0-0.2) Sodium Level 140 mmol/L (136-145) Potassium Level 4.1 mmol/L (3.5-5.1) Chloride Level 99 mmol/L (98-107) Carbon Dioxide Level 34 mmol/L (21-32) Anion Gap 7 (6-14) Blood Urea Nitrogen 21 mg/dL (8-26) Creatinine 1.2 mg/dL (0.7-1.3) Estimated GFR (Cockcroft-Gault) 73.5 Glucose Level 121 mg/dL (70-99) Calcium Level 8.9 mg/dL (8.5-10.1) Magnesium Level 2.0 mg/dL (1.8-2.4) Triglycerides Level 45 mg/dL (0-150) Cholesterol Level 138 mg/dL (0-200) LDL Cholesterol, Calculated 72 mg/dL (0-100) VLDL Cholesterol, Calculated 9 mg/dL (0-40) Non-HDL Cholesterol Calculated 81 mg/dL (0-129) HDL Cholesterol 57 mg/dL (40-60) Cholesterol/HDL Ratio 2.4 Medications Current Medications Aspirin (Children'S Aspirin) 324 mg 1X ONCE PO Last administered on 11/20/18at 00:47; Start 11/20/18 at 00:45; Stop 11/20/18 at 00:46; Status DC Furosemide (Lasix) 40 mg 1X ONCE IVP Last administered on 11/20/18at 00:47; Start 11/20/18 at 00:45; Stop 11/20/18 at 00:46; Status DC Ondansetron HCl (Zofran) 4 mg PRN Q8HRS PRN IV NAUSEA/VOMITING Last administered on 11/20/18at 00:47; Start 11/20/18 at 00:45; Stop 11/21/18 at 00:44; Status DC Bumetanide 10 mg/ Dextrose 100 ml @ 10 mls/hr Q10H IV Last administered on at 11:29; Start 11/20/18 at 14:30 Albuterol Sulfate (Ventolin Neb Soln) 8.5 mg PRN Q6HRS PRN INH SHORTNESS OF BREATH; Start 11/20/18 at 14:15 Active Scripts Active Proair Hfa Inhaler (Albuterol Sulfate) 8.5 Gm Hfa.aer.ad 1 Puff INH PRN Q6HRS PRN Doxycycline Hyclate 100 Mg Tablet. 1 Tab PO BID Vitals/I & O Vital Sign - Last 24 Hours 11/20/18 11/20/18 11/20/18 11/20/18 15:00 19:35 20:00 20:43 Temp 97.7 98.1 97.7 98.1 Pulse 99 110 Resp 18 21 B/P (MAP) 111/66 (81) 111/67 (82) Pulse Ox 91 91 96 O2 Delivery Nasal Cannula Room Air Nasal Cannula Room Air O2 Flow Rate 2.0 2.0 11/20/18 11/21/18 11/21/18 11/21/18 23:54 03:30 07:00 08:00 Temp 98.0 97.9 98.3 98.0 97.9 98.3 Pulse 99 93 96 Resp 19 17 18 B/P (MAP) 108/68 (81) 124/88 (100) 131/71 (91) Pulse Ox 90 88 93 O2 Delivery Room Air Room Air Room Air Nasal Cannula O2 Flow Rate 2.0 11/21/18 11:00 Temp 97.5 97.5 Pulse 81 Resp 18 B/P (MAP) 117/72 (87) Pulse Ox 95 O2 Delivery Room Air Intake and Output 11/20/18 11/20/18 11/21/18 15:00 23:00 07:00 Intake Total 500 ml 900 ml 515 ml Output Total 650 ml 1200 ml 1900 ml Balance -150 ml -300 ml -1385 ml GLEN OLIVARES MD Nov 21, 2018 13:06
--- NOTE | 2018-11-21 13:44 | PDOC ---
PROGRESS NOTES Chief Complaint Chief Complaint Fluid overload secondary to Congestive heart failure? most likely systolic dysfunction with acute exacerbation secondary to dietary transgression (increase in salt intake, [place] soup diet) Hyperglycemia Mild elevation of troponin resolved Microcytic anemia History of Present Illness History of Present Illness Patient feeling better his edema has improved the only complaints is off cramping. We will check his electrolytes in the a.m. and magnesium level. Continue current care CONCERNS were addressed to the best of my abilities Vitals Vitals Vital Signs Date Time Temp Pulse Resp B/P (MAP) Pulse Ox O2 Delivery O2 Flow Rate FiO2 11/21/18 11:00 97.5 81 18 117/72 (87) 95 Room Air 97.5 11/21/18 08:00 2.0 Physical Exam General: mild distress Heart: Regular rate Abdomen: Normal bowel sounds Labs LABS Laboratory Tests Test 11/21/18 04:45 White Blood Count 5.7 x10^3/uL (4.0-11.0) Red Blood Count 4.06 x10^6/uL (4.30-5.70) Hemoglobin 13.7 g/dL (13.0-17.5) Hematocrit 41.2 % (39.0-53.0) Mean Corpuscular Volume 102 fL (79-100) Mean Corpuscular Hemoglobin 34 pg (25-35) Mean Corpuscular Hemoglobin Concent 33 g/dL (31-37) Red Cell Distribution Width 14.4 % (11.5-14.5) Platelet Count 205 x10^3/uL (140-400) Neutrophils (%) (Auto) 66 % (31-73) Lymphocytes (%) (Auto) 22 % (24-48) Monocytes (%) (Auto) 10 % (0-9) Eosinophils (%) (Auto) 1 % (0-3) Basophils (%) (Auto) 1 % (0-3) Neutrophils # (Auto) 3.8 x10^3uL (1.8-7.7) Lymphocytes # (Auto) 1.3 x10^3/uL (1.0-4.8) Monocytes # (Auto) 0.5 x10^3/uL (0.0-1.1) Eosinophils # (Auto) 0.1 x10^3/uL (0.0-0.7) Basophils # (Auto) 0.0 x10^3/uL (0.0-0.2) Sodium Level 140 mmol/L (136-145) Potassium Level 4.1 mmol/L (3.5-5.1) Chloride Level 99 mmol/L (98-107) Carbon Dioxide Level 34 mmol/L (21-32) Anion Gap 7 (6-14) Blood Urea Nitrogen 21 mg/dL (8-26) Creatinine 1.2 mg/dL (0.7-1.3) Estimated GFR (Cockcroft-Gault) 73.5 Glucose Level 121 mg/dL (70-99) Calcium Level 8.9 mg/dL (8.5-10.1) Magnesium Level 2.0 mg/dL (1.8-2.4) Triglycerides Level 45 mg/dL (0-150) Cholesterol Level 138 mg/dL (0-200) LDL Cholesterol, Calculated 72 mg/dL (0-100) VLDL Cholesterol, Calculated 9 mg/dL (0-40) Non-HDL Cholesterol Calculated 81 mg/dL (0-129) HDL Cholesterol 57 mg/dL (40-60) Cholesterol/HDL Ratio 2.4 Review of Systems Review of Systems Mr. history of present illness otherwise 14 point review of system is negative Comment Review of Relevant I have reviewed the following items ida (where applicable) has been applied. Labs Laboratory Tests Test 11/19/18 22:40 11/19/18 22:56 11/20/18 06:05 11/21/18 04:45 Urine Collection Type Unknown Urine Color [place] Urine Clarity Clear Urine pH 5.5 Urine Specific [place] >=1.030 Urine Protein 30 mg/dL (NEG-TRACE) Urine Glucose (UA) Negative mg/dL (NEG) Urine Ketones (Stick) Negative mg/dL (NEG) Urine Blood Negative (NEG) Urine Nitrite Negative (NEG) Urine Bilirubin Small (NEG) Urine Urobilinogen Dipstick 1.0 mg/dL (0.2 mg/dL) Urine Leukocyte Esterase Negative (NEG) Urine RBC 0 /HPF (0-2) Urine WBC 5-10 /HPF (0-4) Urine Squamous Epithelial Cells Occ /LPF Urine Bacteria 0 /HPF (0-FEW) Urine Hyaline Casts Moderate /HPF Urine Mucus Marked /LPF White Blood Count 6.6 x10^3/uL (4.0-11.0) 5.7 x10^3/uL (4.0-11.0) Red Blood Count 3.83 x10^6/uL (4.30-5.70) 4.06 x10^6/uL (4.30-5.70) Hemoglobin 12.7 g/dL (13.0-17.5) 13.7 g/dL (13.0-17.5) Hematocrit 38.8 % (39.0-53.0) 41.2 % (39.0-53.0) Mean Corpuscular Volume 101 fL (79-100) 102 fL (79-100) Mean Corpuscular Hemoglobin 33 pg (25-35) 34 pg (25-35) Mean Corpuscular Hemoglobin Concent 33 g/dL (31-37) 33 g/dL (31-37) Red Cell Distribution Width 14.1 % (11.5-14.5) 14.4 % (11.5-14.5) Platelet Count 206 x10^3/uL (140-400) 205 x10^3/uL (140-400) Neutrophils (%) (Auto) 63 % (31-73) 66 % (31-73) Lymphocytes (%) (Auto) 24 % (24-48) 22 % (24-48) Monocytes (%) (Auto) 11 % (0-9) 10 % (0-9) Eosinophils (%) (Auto) 1 % (0-3) 1 % (0-3) Basophils (%) (Auto) 1 % (0-3) 1 % (0-3) Neutrophils # (Auto) 4.2 x10^3uL (1.8-7.7) 3.8 x10^3uL (1.8-7.7) Lymphocytes # (Auto) 1.6 x10^3/uL (1.0-4.8) 1.3 x10^3/uL (1.0-4.8) Monocytes # (Auto) 0.7 x10^3/uL (0.0-1.1) 0.5 x10^3/uL (0.0-1.1) Eosinophils # (Auto) 0.1 x10^3/uL (0.0-0.7) 0.1 x10^3/uL (0.0-0.7) Basophils # (Auto) 0.0 x10^3/uL (0.0-0.2) 0.0 x10^3/uL (0.0-0.2) Sodium Level 142 mmol/L (136-145) 140 mmol/L (136-145) Potassium Level 4.2 mmol/L (3.5-5.1) 4.1 mmol/L (3.5-5.1) Chloride Level 105 mmol/L (98-107) 99 mmol/L (98-107) Carbon Dioxide Level 30 mmol/L (21-32) 34 mmol/L (21-32) Anion Gap 7 (6-14) 7 (6-14) Blood Urea Nitrogen 15 mg/dL (8-26) 21 mg/dL (8-26) Creatinine 0.9 mg/dL (0.7-1.3) 1.2 mg/dL (0.7-1.3) Estimated GFR (Cockcroft-Gault) 102.5 73.5 BUN/Creatinine Ratio 17 (6-20) Glucose Level 135 mg/dL (70-99) 121 mg/dL (70-99) Calcium Level 8.6 mg/dL (8.5-10.1) 8.9 mg/dL (8.5-10.1) Total Bilirubin 0.5 mg/dL (0.2-1.0) Aspartate Amino Transf (AST/SGOT) 42 U/L (15-37) Alanine Aminotransferase (ALT/SGPT) 44 U/L (16-63) Alkaline Phosphatase 85 U/L (46-116) Creatine Kinase 294 U/L (39-308) Creatine Kinase MB (Mass) 7.2 ng/mL (0.0-3.6) Creatine Kinase MB Relative Index 2.4 % (0-4) Troponin I Quantitative 0.063 ng/mL (0.000-0.055) 0.052 ng/mL (0.000-0.055) UC-Ppf-Q-Type Natriuretic Peptide 7105 pg/mL (0-124) Total Protein 5.9 g/dL (6.4-8.2) Albumin 2.9 g/dL (3.4-5.0) Albumin/Globulin Ratio 1.0 (1.0-1.7) Ethyl Alcohol Level < 10 mg/dL (0-10) Magnesium Level 2.0 mg/dL (1.8-2.4) Triglycerides Level 45 mg/dL (0-150) Cholesterol Level 138 mg/dL (0-200) LDL Cholesterol, Calculated 72 mg/dL (0-100) VLDL Cholesterol, Calculated 9 mg/dL (0-40) Non-HDL Cholesterol Calculated 81 mg/dL (0-129) HDL Cholesterol 57 mg/dL (40-60) Cholesterol/HDL Ratio 2.4 Laboratory Tests Test 11/21/18 04:45 White Blood Count 5.7 x10^3/uL (4.0-11.0) Red Blood Count 4.06 x10^6/uL (4.30-5.70) Hemoglobin 13.7 g/dL (13.0-17.5) Hematocrit 41.2 % (39.0-53.0) Mean Corpuscular Volume 102 fL (79-100) Mean Corpuscular Hemoglobin 34 pg (25-35) Mean Corpuscular Hemoglobin Concent 33 g/dL (31-37) Red Cell Distribution Width 14.4 % (11.5-14.5) Platelet Count 205 x10^3/uL (140-400) Neutrophils (%) (Auto) 66 % (31-73) Lymphocytes (%) (Auto) 22 % (24-48) Monocytes (%) (Auto) 10 % (0-9) Eosinophils (%) (Auto) 1 % (0-3) Basophils (%) (Auto) 1 % (0-3) Neutrophils # (Auto) 3.8 x10^3uL (1.8-7.7) Lymphocytes # (Auto) 1.3 x10^3/uL (1.0-4.8) Monocytes # (Auto) 0.5 x10^3/uL (0.0-1.1) Eosinophils # (Auto) 0.1 x10^3/uL (0.0-0.7) Basophils # (Auto) 0.0 x10^3/uL (0.0-0.2) Sodium Level 140 mmol/L (136-145) Potassium Level 4.1 mmol/L (3.5-5.1) Chloride Level 99 mmol/L (98-107) Carbon Dioxide Level 34 mmol/L (21-32) Anion Gap 7 (6-14) Blood Urea Nitrogen 21 mg/dL (8-26) Creatinine 1.2 mg/dL (0.7-1.3) Estimated GFR (Cockcroft-Gault) 73.5 Glucose Level 121 mg/dL (70-99) Calcium Level 8.9 mg/dL (8.5-10.1) Magnesium Level 2.0 mg/dL (1.8-2.4) Triglycerides Level 45 mg/dL (0-150) Cholesterol Level 138 mg/dL (0-200) LDL Cholesterol, Calculated 72 mg/dL (0-100) VLDL Cholesterol, Calculated 9 mg/dL (0-40) Non-HDL Cholesterol Calculated 81 mg/dL (0-129) HDL Cholesterol 57 mg/dL (40-60) Cholesterol/HDL Ratio 2.4 Medications Current Medications Aspirin (Children'S Aspirin) 324 mg 1X ONCE PO Last administered on 11/20/18at 00:47; Start 11/20/18 at 00:45; Stop 11/20/18 at 00:46; Status DC Furosemide (Lasix) 40 mg 1X ONCE IVP Last administered on 11/20/18at 00:47; Start 11/20/18 at 00:45; Stop 11/20/18 at 00:46; Status DC Ondansetron HCl (Zofran) 4 mg PRN Q8HRS PRN IV NAUSEA/VOMITING Last administered on 11/20/18at 00:47; Start 11/20/18 at 00:45; Stop 11/21/18 at 00:44; Status DC Bumetanide 10 mg/ Dextrose 100 ml @ 10 mls/hr Q10H IV Last administered on 11/21/18at 11:29; Start 11/20/18 at 14:30 Albuterol Sulfate (Ventolin Neb Soln) 8.5 mg PRN Q6HRS PRN INH SHORTNESS OF BREATH; Start 11/20/18 at 14:15 Active Scripts Active Proair Hfa Inhaler (Albuterol Sulfate) 8.5 Gm Hfa.aer.ad 1 Puff INH PRN Q6HRS PRN Doxycycline Hyclate 100 Mg Tablet. 1 Tab PO BID Vitals/I & O Vital Sign - Last 24 Hours 11/20/18 11/20/18 11/20/18 11/20/18 15:00 19:35 20:00 20:43 Temp 97.7 98.1 97.7 98.1 Pulse 99 110 Resp 18 21 B/P (MAP) 111/66 (81) 111/67 (82) Pulse Ox 91 91 96 O2 Delivery Nasal Cannula Room Air Nasal Cannula Room Air O2 Flow Rate 2.0 2.0 11/20/18 11/21/18 11/21/18 11/21/18 23:54 03:30 07:00 08:00 Temp 98.0 97.9 98.3 98.0 97.9 98.3 Pulse 99 93 96 Resp 19 17 18 B/P (MAP) 108/68 (81) 124/88 (100) 131/71 (91) Pulse Ox 90 88 93 O2 Delivery Room Air Room Air Room Air Nasal Cannula O2 Flow Rate 2.0 11/21/18 11:00 Temp 97.5 97.5 Pulse 81 Resp 18 B/P (MAP) 117/72 (87) Pulse Ox 95 O2 Delivery Room Air Intake and Output 11/20/18 11/20/18 11/21/18 15:00 23:00 07:00 Intake Total 500 ml 900 ml 515 ml Output Total 650 ml 1200 ml 1900 ml Balance -150 ml -300 ml -1385 ml JERRELL BOWMAN MD Nov 21, 2018 13:44
[2018-11-21] MEDS ORDERED: ACETAMINOPHEN 325 MG TABLET. PO PRN (14:15)
[2018-11-21] MEDS ORDERED: POLYETHYLENE GLYCOL 3350 17 GM PACKET. PO PRN (14:15)
[2018-11-21 15:00] VITALS: BP 112/68
[2018-11-21 19:00] VITALS: BP 105/70
[2018-11-21 23:00] VITALS: BP 110/63
[2018-11-22] VITALS (7 sets, daily range): BP systolic 98–188; BP diastolic 56–134
[2018-11-22] MEDS: DEXTROSE 5% IV SCH (07:02)
[2018-11-22] MEDS: BUMETANIDE IV SCH (07:02)
--- NOTE | 2018-11-22 08:39 | CARD ---
MR#: [id number] Date of Study: 11/21/2018 Ordering Physician: GLEN LEAL, Referring Physician: JERRELL BOWMAN Tech: Kendy Ingram RDCS APPROVED REPORT EXAM: Two-dimensional and M-mode echocardiogram with Doppler and color Doppler. Other Information Quality : Good INDICATION Congestive Heart Failure 2D DIMENSIONS RVDd3.4 (2.9-3.5cm)Left Atrium(2D)3.8 (1.6-4.0cm) IVSd1.0 (0.7-1.1cm)Aortic Root(2D)3.0 (2.0-3.7cm) LVDd5.8 (3.9-5.9cm)LVOT Diameter2.1 (1.8-2.4cm) PWd1.3 (0.7-1.1cm)LVDs5.1 (2.5-4.0cm) FS (%) 12.7 %SV44.9 ml Aortic Valve AoV Peak Etienne.101.3cm/sAoV VTI15.1cm AO Peak GR.4.1mmHgLVOT VTI 10.09cm AO Mean GR.2mmHgAVA (VTI)2.25cm2 Mitral Valve MV E Gydlwemd70.6cm/sMV DECEL [id number] MV A Rxhzvboi57.6cm/sE/A Ratio1.1 Tricuspid Valve TR P. Wqvgedhe103mp/sRAP BMDFQPYR21ayCh TR Peak Gr.83hhBjJWMW12bzFc Pulmonary Vein S1 Zeaydjmj22.5cm/sS2 Yfksarnp91.80cm/s D2 Wpztrolw33.8cm/s LEFT VENTRICLE The Left Ventricle is borderline dilated. There is mild concentric left ventricular hypertrophy. Left ventricle systolic function is severely impaired. The Ejection Fraction is 15-20%. There is severe g lobal hypokinesis of the left ventricle. RIGHT VENTRICLE The right ventricle is mildly dilated. Systolic function is mildly to moderately reduced. ATRIA The left atrium size is normal. The right atrium is mild to moderately dilated. The interatrial septu m is intact with no evidence for an atrial septal defect or patent foramen ovale as noted on 2-D or D oppler imaging. AORTIC VALVE The aortic valve is calcified but opens well. Doppler and Color Flow revealed no significant aortic r egurgitation. There is no significant aortic valvular stenosis. MITRAL VALVE The mitral valve is calcified but opens well. There is no evidence of mitral valve prolapse. There is no mitral valve stenosis. Doppler and Color-flow revealed mild mitral regurgitation. TRICUSPID VALVE The tricuspid valve is normal in structure and function. Doppler and Color Flow revealed mild tricusp id regurgitation. The PA pressure was estimated at 41 mmHg. There is no tricuspid valve stenosis. PULMONIC VALVE The pulmonary valve is normal in structure and function. Doppler and Color Flow revealed mild pulmoni c valvular regurgitation. There is no pulmonic valvular stenosis. GREAT VESSELS The aortic root is normal in size. The ascending aorta is normal in size. The IVC is dilated and rylee apses <50% with inspiration. PERICARDIAL EFFUSION There is no evidence of significant pericardial effusion. Critical Notification Critical Value: No <Conclusion> The Left Ventricle is borderline dilated. Left ventricle systolic function is severely impaired. The Ejection Fraction is 15-20%. There is severe global hypokinesis of the left ventricle. There is mild concentric left ventricular hypertrophy. There is no significant aortic valvular stenosis. Doppler and Color Flow revealed no significant aortic regurgitation. Doppler and Color-flow revealed mild mitral regurgitation. Doppler and Color Flow revealed mild tricuspid regurgitation. The PA pressure was estimated at 41 mmHg. Signed by : Glen Leal MD Electronically Approved : 11/22/2018 08:38:58
[2018-11-22] MEDS: FUROSEMIDE 40 MG TABLET. PO SCH (11:18)
--- NOTE | 2018-11-22 14:15 | PDOC ---
CARDIO Progress Notes Date and Time Date of Service 11/22/18 Time of Evaluation 1400 Subjective Subjective: No Chest Pain, No Palpitations, Other (SOA better, anxious to go home so he can get back to work) Vitals Vitals Vital Signs Date Time Temp Pulse Resp B/P (MAP) Pulse Ox O2 Delivery O2 Flow Rate FiO2 11/22/18 11:17 98.0 105 20 123/67 (85) 91 Room Air 98.0 11/21/18 19:40 2.0 Weight Weight [ ] Input and Output Intake and Output Intake and Output 11/22/18 07:00 Intake Total 1060 ml Output Total 6100 ml Balance -5040 ml Intake Oral 940 ml IV Total 120 ml Output Urine Total 6100 ml Physical Exam HEENT: Neck Supple W Full Motion Chest: Symmetric LUNGS: Other (fine crackles bilaterally) Heart: S1S2, RRR, murmurs (2/6 systolic murmur) Abdomen: Soft N/T Extremities: Other (1+ bilateral LE edema ) Neurology: alert, oriented, follow commands Assessment Assessment 1. Acute systolic heart failure; better compensated 2. Severe cardiomyopathy; LVEF 15-20%. 3. Mild troponin elevation; peak 0.063 4. 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 2 Gm Na diet Optimization therapy as BP allow; add low-dose ACEi and BB ASA D/w primary body shop mechanic. MPI in am to r/o ischemic etiology. Discussed/encouraged smoking cessation JOSE LUX APRN Nov 22, 2018 14:15
--- NOTE | 2018-11-22 14:42 | NUR ---
SS following for discharge planning. SS reviewed pt chart. Pt is a self pay pt. HCFS following for self pay status. Pt is from home. No discharge needs noted at this time. SS will continue to follow for discharge planning.
--- NOTE | 2018-11-22 15:20 | PDOC ---
PROGRESS NOTES Chief Complaint Chief Complaint acute systolic Congestive heart failure Hyperglycemia Mild elevation of troponin resolved Microcytic anemia tobacco use disorder History of Present Illness History of Present Illness Patient feeling better his edema has improved the only complaints is off cramping. DC the bumex gtt, change to PO lasix EF 15% stress test in AM Vitals Vitals Vital Signs Date Time Temp Pulse Resp B/P (MAP) Pulse Ox O2 Delivery O2 Flow Rate FiO2 11/22/18 15:11 98.6 95 20 109/64 (79) 95 Nasal Cannula 98.6 11/21/18 19:40 2.0 Physical Exam General: Alert, Oriented X3, No acute distress Heart: Regular rate Abdomen: Normal bowel sounds Skin: No breakdown Review of Systems Review of Systems no n.v.d Comment Review of Relevant I have reviewed the following items ida (where applicable) has been applied. Labs Laboratory Tests Test 11/21/18 04:45 White Blood Count 5.7 x10^3/uL (4.0-11.0) Red Blood Count 4.06 x10^6/uL (4.30-5.70) Hemoglobin 13.7 g/dL (13.0-17.5) Hematocrit 41.2 % (39.0-53.0) Mean Corpuscular Volume 102 fL (79-100) Mean Corpuscular Hemoglobin 34 pg (25-35) Mean Corpuscular Hemoglobin Concent 33 g/dL (31-37) Red Cell Distribution Width 14.4 % (11.5-14.5) Platelet Count 205 x10^3/uL (140-400) Neutrophils (%) (Auto) 66 % (31-73) Lymphocytes (%) (Auto) 22 % (24-48) Monocytes (%) (Auto) 10 % (0-9) Eosinophils (%) (Auto) 1 % (0-3) Basophils (%) (Auto) 1 % (0-3) Neutrophils # (Auto) 3.8 x10^3uL (1.8-7.7) Lymphocytes # (Auto) 1.3 x10^3/uL (1.0-4.8) Monocytes # (Auto) 0.5 x10^3/uL (0.0-1.1) Eosinophils # (Auto) 0.1 x10^3/uL (0.0-0.7) Basophils # (Auto) 0.0 x10^3/uL (0.0-0.2) Sodium Level 140 mmol/L (136-145) Potassium Level 4.1 mmol/L (3.5-5.1) Chloride Level 99 mmol/L (98-107) Carbon Dioxide Level 34 mmol/L (21-32) Anion Gap 7 (6-14) Blood Urea Nitrogen 21 mg/dL (8-26) Creatinine 1.2 mg/dL (0.7-1.3) Estimated GFR (Cockcroft-Gault) 73.5 Glucose Level 121 mg/dL (70-99) Calcium Level 8.9 mg/dL (8.5-10.1) Magnesium Level 2.0 mg/dL (1.8-2.4) Triglycerides Level 45 mg/dL (0-150) Cholesterol Level 138 mg/dL (0-200) LDL Cholesterol, Calculated 72 mg/dL (0-100) VLDL Cholesterol, Calculated 9 mg/dL (0-40) Non-HDL Cholesterol Calculated 81 mg/dL (0-129) HDL Cholesterol 57 mg/dL (40-60) Cholesterol/HDL Ratio 2.4 Medications Current Medications Aspirin (Children'S Aspirin) 324 mg 1X ONCE PO Last administered on 11/20/18at 00:47; Start 11/20/18 at 00:45; Stop 11/20/18 at 00:46; Status DC Furosemide (Lasix) 40 mg 1X ONCE IVP Last administered on 11/20/18at 00:47; Start 11/20/18 at 00:45; Stop 11/20/18 at 00:46; Status DC Ondansetron HCl (Zofran) 4 mg PRN Q8HRS PRN IV NAUSEA/VOMITING Last administered on 11/20/18at 00:47; Start 11/20/18 at 00:45; Stop 11/21/18 at 00:44; Status DC Bumetanide 10 mg/ Dextrose 100 ml @ 10 mls/hr Q10H IV Last administered on 11/22/18at 07:02; Start 11/20/18 at 14:30; Stop 11/22/18 at 10:34; Status DC Albuterol Sulfate (Ventolin Neb Soln) 8.5 mg PRN Q6HRS PRN INH SHORTNESS OF BREATH; Start 11/20/18 at 14:15 Acetaminophen (Tylenol) 650 mg PRN Q6HRS PRN PO PAIN Last administered on 11/21/18at 15:50; Start 11/21/18 at 14:15 Polyethylene Glycol (miraLAX PACKET) 17 gm PRN DAILY PRN PO CONSTIPATION; Start 11/21/18 at 14:15 Furosemide (Lasix) 40 mg DAILY PO Last administered on 11/22/18at 11:18; Start 11/22/18 at 11:30 Active Scripts Active Proair Hfa Inhaler (Albuterol Sulfate) 8.5 Gm Hfa.aer.ad 1 Puff INH PRN Q6HRS PRN Doxycycline Hyclate 100 Mg Tablet.dr 1 Tab PO BID Vitals/I & O Vital Sign - Last 24 Hours 11/21/18 11/21/18 11/21/18 11/22/18 19:00 19:40 23:00 03:49 Temp 98.2 98.1 98.1 98.2 98.1 98.1 Pulse 96 68 86 Resp 20 20 20 B/P (MAP) 105/70 (82) 110/63 (79) 98/56 (70) Pulse Ox 93 93 93 O2 Delivery Room Air Nasal Cannula Room Air Nasal Cannula O2 Flow Rate 2.0 11/22/18 11/22/18 11/22/18 11/22/18 07:13 08:00 11:17 15:11 Temp 98.2 98.0 98.6 98.2 98.0 98.6 Pulse 90 105 95 Resp 20 20 20 B/P (MAP) 120/79 (93) 123/67 (85) 109/64 (79) Pulse Ox 97 91 95 O2 Delivery Nasal Cannula Nasal Cannula Room Air Nasal Cannula Intake and Output 11/21/18 11/21/18 11/22/18 15:00 23:00 07:00 Intake Total 200 ml 740 ml 120 ml Output Total 3000 ml 1200 ml 1900 ml Balance -2800 ml -460 ml -1780 ml BENNY MASSEY MD Nov 22, 2018 15:20
[2018-11-22] MEDS ORDERED: ALBUTEROL SULFATE 2.5 MG/3 ML NEBU. INH PRN (15:21)
[2018-11-22] MEDS ORDERED: IPRATRPIUM/ALBUTEROL 0.5/2.5MG 3 ML NEBU. NEB PRN (15:30)
[2018-11-22] MEDS: CARVEDILOL 3.125 MG TABLET. PO SCH (16:41)
--- NOTE | 2018-11-22 23:43 | NUR ---
Pt demanded that I remove his IV because it was hurting him when he turned in bed. Educated pt on the importance of IV and that he has a procedure in a.m. Pt agrees to allow this RN to reinsert IV in a.m. VSS, SR on telemetry, bed in low/locked position, will continue for monitor changes.
[2018-11-23 02:37] VITALS: BP 122/76
[2018-11-23 07:13] LABS: CALCIUM 8.9 mg/dL (8.5-10.1); GFR 90.7; POTASSIUM 3.3 mmol/L (3.5-5.1)
[2018-11-23 07:39] VITALS: BP 109/70
[2018-11-23] MEDS ORDERED: ASPIRIN ENTERIC COATED 81 MG TABLET.DR. PO SCH (08:00)
[2018-11-23] MEDS ORDERED: LISINOPRIL 5 MG TABLET. PO SCH (09:00)
[2018-11-23] MEDS ORDERED: REGADENOSON 0.4 MG/5 ML DISP.SYRIN. IV ONE (10:00)
[2018-11-23 11:16] LABS: HEMOGLOBIN A1C 5.7 % (4.8-5.6)
[2018-11-23 11:17] VITALS: BP 117/65
--- NOTE | 2018-11-23 11:36 | PDOC ---
CARDIO Progress Notes Date and Time Date of Service 11/23/18 Time of Evaluation 1120 Subjective Subjective: No Chest Pain, No Palpitations, Other (wantign to go home; will be going irregardless of stress test results.) Vitals Vitals Vital Signs Date Time Temp Pulse Resp B/P (MAP) Pulse Ox O2 Delivery O2 Flow Rate FiO2 11/23/18 11:17 98.1 99 20 117/65 (82) 88 Room Air 98.1 11/23/18 08:00 2.0 Weight Weight [ ] Input and Output Intake and Output Intake and Output 11/23/18 07:00 Intake Total 1040 ml Output Total 4650 ml Balance -3610 ml Intake Oral 1040 ml Output Urine Total 4650 ml Laboratory Labs Laboratory Tests Test 11/23/18 06:33 Sodium Level 137 mmol/L (136-145) Potassium Level 3.3 mmol/L (3.5-5.1) Chloride Level 95 mmol/L (98-107) Carbon Dioxide Level 39 mmol/L (21-32) Anion Gap 3 (6-14) Blood Urea Nitrogen 16 mg/dL (8-26) Creatinine 1.0 mg/dL (0.7-1.3) Estimated GFR (Cockcroft-Gault) 90.7 Glucose Level 137 mg/dL (70-99) Calcium Level 8.9 mg/dL (8.5-10.1) Microbiology Micro Microbiology 11/19/18 Urine Culture - Final, Complete 11/19/18 Urine Culture Result 1 ([facility]) - Final, Complete Physical Exam HEENT: Neck Supple W Full Motion Chest: Symmetric LUNGS: Other (fine crackles bilaterally) Heart: S1S2, RRR, murmurs (2/6 systolic murmur) Abdomen: Soft N/T Extremities: Other (1+ bilateral LE edema ) Neurology: alert, oriented, follow commands Assessment Assessment 1. Acute systolic heart failure; better compensated 2. Severe cardiomyopathy; LVEF 15-20%. MPI today to r/o ischemic etiology 3. Mild troponin elevation; peak 0.063 4. Tobaccoism Recommendations Had extensive discussion with patient today regarding heart failure; diagnosis, workup, management. Patient has poor understanding of severity 2 Gm Na diet 1500cc FR Discussed daily weight- report 2-3# weight gain overnight or 5# in 1 week. Continue optimization therapy with Coreg, lisinopril D/w SW- has medicare application Discussed/encouraged smoking cessation Discussed LifeVest for primary prevention of SCD- patient declined Echo in 3 months to reassess LV systolic function. Will need close f/u upon discharge JOSE LUX APRN Nov 23, 2018 11:36
[2018-11-23] MEDS ORDERED: CARV3.1210 PO (11:41)
[2018-11-23] MEDS ORDERED: POLY17PO28 PO (11:41)
[2018-11-23] MEDS ORDERED: LISI-338 PO (11:41)
[2018-11-23] MEDS ORDERED: FURO40TA4 PO (11:41)
--- NOTE | 2018-11-23 11:50 | NUR ---
SS following up with discharge planning. SS discussed self pay status with [facility], Tania Jo, [id number]. Tania reported that pt has an application submitted with Medicare but pt will need to call or go to Social Security Office to verify the status of his Medicare application. SS met with pt and provided him with the contact information for Medicare.
[2018-11-23] MEDS: CARVEDILOL 3.125 MG TABLET. PO SCH (12:18)
[2018-11-23] MEDS: FUROSEMIDE 40 MG TABLET. PO SCH (12:18)
--- NOTE | 2018-11-23 13:07 | PDOC3 ---
Discharge Summary Visit Information Date of Admission: Nov 20, 2018 Date of Discharge: Nov 23, 2018 Admitting Diagnosis: new LE edema Final Diagnosis acute systolic Congestive heart failure Hyperglycemia Mild elevation of troponin resolved Microcytic anemia tobacco use disorder History of Present Illness History of Present Illness Patient feeling better his edema has improved the only complaints is off cramping. DC the bumex gtt, change to PO lasix EF 15% stress test in AM Brief Hospital Course Allergies Allergies Coded Allergies Type Severity Reaction Last Updated Verified No Known Drug Allergies 10/28/18 No Vital Signs Vital Signs Date Time Temp Pulse Resp B/P (MAP) Pulse Ox O2 Delivery O2 Flow Rate FiO2 11/23/18 12:18 99 117/65 11/23/18 11:17 98.1 20 88 Room Air 98.1 11/23/18 08:00 2.0 Lab Results Laboratory Tests Test 11/23/18 06:33 Sodium Level 137 mmol/L (136-145) Potassium Level 3.3 mmol/L (3.5-5.1) Chloride Level 95 mmol/L (98-107) Carbon Dioxide Level 39 mmol/L (21-32) Anion Gap 3 (6-14) Blood Urea Nitrogen 16 mg/dL (8-26) Creatinine 1.0 mg/dL (0.7-1.3) Estimated GFR (Cockcroft-Gault) 90.7 Glucose Level 137 mg/dL (70-99) Calcium Level 8.9 mg/dL (8.5-10.1) Laboratory Tests Test 11/23/18 06:33 Sodium Level 137 mmol/L (136-145) Potassium Level 3.3 mmol/L (3.5-5.1) Chloride Level 95 mmol/L (98-107) Carbon Dioxide Level 39 mmol/L (21-32) Anion Gap 3 (6-14) Blood Urea Nitrogen 16 mg/dL (8-26) Creatinine 1.0 mg/dL (0.7-1.3) Estimated GFR (Cockcroft-Gault) 90.7 Glucose Level 137 mg/dL (70-99) Calcium Level 8.9 mg/dL (8.5-10.1) Brief Hospital Course Mr. Linares is a 63 old male, admit with new dyspnea and lower extermity edema CHF on CXR, BNP high, started on BUMEX gtt, 12 lbs weight loss, edema gone and he felt well, changed to PO lasix CV consult, stress test done before DC< they will follow outpatient echo showed EF 15-20% BNP 7100 serum C02 high, probable emphysema, chronic respiratory acidosis, will need outpatient f/u Discharge Information Condition at Discharge: Improved Follow Up: Weeks Disposition/Orders: D/C to Home Scheduled Carvedilol (Carvedilol ) 3.125 Mg Tablet, 3.125 MG PO BIDWMEALS for chf, #60 Ref 2 Prescribed by: BENNY MASSEY on 11/23/18 1141 Furosemide (Furosemide) 40 Mg Tablet, 40 MG PO DAILY for chf, #30 Ref 2 Prescribed by: BENNY MASSEY on 11/23/18 1141 Lisinopril (Lisinopril) 5 Mg Tablet, 2.5 MG PO DAILY for chf, #30 Ref 2 Prescribed by: BENNY MASSEY on 11/23/18 1141 Scheduled PRN Albuterol Sulfate (Proair Hfa Inhaler) 8.5 Gm Hfa.aer.ad, 1 PUFF INH PRN Q6HRS PRN for SHORTNESS OF BREATH, #1 Ref 0 Prescribed by: BHUMI INTERIANO APRN on 11/08/18 1124 Last Action: Continued on 11/20/18 1410 by JERRELL BOWMAN MD Polyethylene Glycol 3350 (Polyethylene Glycol 3350) 17 Gm Powd.pack, 17 GM PO PRN DAILY PRN for CONSTIPATION, #30 Prescribed by: BENNY MASSEY on 11/23/18 1141 Discontinued Medications Doxycycline Hyclate (Doxycycline Hyclate) 100 Mg Tablet.dr, 1 TAB PO BID for infection, #20 Prescribed by: BHUMI INTERIANO APRN on 11/08/18 1124 Patient Instructions Patient Instructions > 30 min face to face images reviewed plan discussed will need CP rehab, ICD possible discussed, he is precontemplation on that one BENNY MASSEY MD Nov 23, 2018 13:07
--- NOTE | 2018-11-23 14:33 | RAD ---
MR#: [id number] Date of Study: 11/23/2018 Ordering Physician: JOSE LUX, Referring Physician: JOHANNA LEVIN Tech: Danielle Mcadams RT (R) (N) APPROVED REPORT Test Type: Pharmacological Stress Nurse/Tech: Graham Theodore RN Test Indications: cardiomyopathy Cardiac History: smoker Medications: See Electronic Medical Record Medical History: See Electronic Medical Record Resting ECG: SR inverted T wave Resting Heart Rate: 87 bpm Resting Blood Pressure: 113/73mmHg Pretest Chest Pain: None Nurse/Tech Notes Lungs CTA, S1S2 Consent: The procedure was explained to the patient in lay terms. Informed consent was witnessed. Romel eout was entered into [employer]. History and Stress Test performed by Graham Theodore RN Pharm. Details Pharmacologic stress testing was performed using 0.4mg per 5ml of regadenoson given intravenously ove r 7-10 seconds. Stress Symptoms No chest pain or symptoms. POST EXERCISE Reason for Termination: Infusion complete Max HR: 114 bpm Max Blood Pressure: 109/67mmHg Blood Pressure response to exercise: Normal blood pressure response during stress. Heart Rate response to exercise: normal response Chest Pain: No. Arrhythmia: No. ST Change: No. INTERPRETATION Stress EKG Conclusion: No evidence of stress induced EKG changes. Prior anteroseptal infarct Imaging Protocol IMAGE PROTOCOL: Rest Tc-99m/stress Tc-99m 1 day Rest: Stress: Viability: Radiopharm.Tc99m [id number] Sestamibi Dose10.7mCi 35mCi Duration 15min. 10min. Img Date 11/23/2018 11/23/2018 Inj-Img [id number]. 60min. Rest Admin Site:IV - Right ForearmAdministrator:MIKE Gutierrez Stress Admin Site: IV - Right ForearmAdministrator: MIKE Gutierrez STRESS DATA End Diast. Vol.238.0mlAv. Heart Rate89.0bpm End Syst. Vol.174.0mlCO Index BSA5.7L/min Myocardial Dbgs793.0gEject. Uibstgdy47.0% Stress Rates Pk. Fill Rate0.70EDV/secLVtime Pk. Fill 64.92msec Pk. Empty Rate1.36ESV/secLVtime Pk. Lallu772.10msec /3 Pk. Fill0.51EDV/sec Stress Scores Regional WT3.00Summed WT46.00 Regional WM1.00Summed WM44.00 LV Perfusion Normal perfusion at stress/rest. Wall Motion Severe global hypokinesis. EF 27%. LV Perf. Quant 17 Seg. SSS0.00 17 Seg. SRS3.00 17 Seg. SDS0.00 Stress Defect Extent (% LAD)0.00Rest Defect Extent (% LAD)0.00Rev. Defect Extent (% LAD)0.00 Stress Defect Extent (% LCX) 0.00Rest Defect Extent (% LCX)8.80Rev. Defect Extent (% LCX)0.00 Stress Defect Extent (% RCA)0.00Rest Defect Extent (% RCA)12.20Rev. Defect Extent (% RCA)0.00 Stress Defect Extent (% WILLARD)0.00Rest Defect Extent (% WILLARD)3.90Rev. Defect Extent (% WILLARD)0.00 Other Information Quality:Average Risk Assessment: High Risk Conclusion 1. No evidence of EKG changes with stress testing. 2. Normal perfusion at stress/rest. 3. EF 27%. Global hypokinesis. 4. High risk for future CV events due to LV dysfunction. Signed by : Nii Horne, Electronically Approved : 11/23/2018 14:33:07
[2018-11-23 15:00] VITALS: BP 104/60
--- NOTE | 2018-11-23 15:00 | NUR ---
Patient was finishing stress test when DC order placed.
--- NOTE | 2018-11-23 15:15 | NUR ---
Discharge instructions given to patient. PIV and heart monitor removed. Escorted patient to ER entrance into a private vehicle.
== END 2018-11-23 15:15 | disposition home or self-care (01) | DRG 292 ==
LOC: ER 22:23 → 2 SOUTH 11-20 00:12
PROVIDERS: ADMIT Internal Medicine; ATTEND Internal Medicine
DX: I50.21 Acute systolic (congestive) heart failure (principal); I42.9 Cardiomyopathy, unspecified; E87.2 Acidosis; J45.909 Unspecified asthma, uncomplicated; D50.9 Iron deficiency anemia, unspecified; F17.200 Nicotine dependence, unspecified, uncomplicated; R73.9 Hyperglycemia, unspecified; J43.9 Emphysema, unspecified
CPT/HCPCS: 36415; 71045; 78452; 80048; 80053; 80061; 81001; 82553; 83036; 83735; 83880; 84484; 85025; 87086; 93005; 93017; 93306; 96374; 96375; 99406; A9500; G0480; J1940; J2405; J2785; J3490; 99285-25